=== PATIENT | male | born 1965 | race Caucasian/White ===

== ENCOUNTER 2019-11-01 14:08 | Emergency (ER) | payer SELFPAY ==
--- NOTE | 2019-11-01 14:43 | ED_ITS ---
HPI - General Adult General: Stated complaint: LEFT MIDDLE FINGER Time Seen by Provider: 11/01/19 14:39 History of Present Illness: HPI narrative: Patient with infection in his left middle finger. Has been present for couple days. Patient not for sure how he injured it. Has redness in the finger extending to the dorsal surface of the hand. Patient denies fever chills. Tetanus is up-to-date less than 10 years complaint: Cellulitis Onset (ago): day(s) (2) Location: left and upper extremity Severity: moderate Associated symptoms: Reports no associated symptoms; Deny chest pain, dyspnea, headache(s), nausea, rash or vomiting Review of Systems Const: Denies: fever, chills or body aches Eyes: Denies: change in vision or blurry vision ENMT: Denies: throat pain or nasal congestion Card: Denies: chest pain or shortness of breath on exertion Resp: Denies: shortness of breath, productive cough or non-productive cough GI: Denies: abdominal pain, nausea or vomiting : Denies: difficulty urinating Musc: Reports: extremity pain (Left middle finger with redness and tenderness) and extremity swelling Skin/Breast: Denies: rash Neuro: Denies: headache Psych: Denies: anxiety or depression Jerson/Lymph: Denies: easy bruising Physical Exam Const: COMMON NORMALS: no apparent distress, average body habitus and oriented x3 HENMT: COMMON NORMALS: normocephalic HEAD & SCALP: normal to inspection and normocephalic FACE & SINUS: normal facial exam Eye: COMMON NORMALS: conjunctivae normal GENERAL EYE: normal appearance of both eyes CONJUNCTIVA: Yes conjunctivae normal Neck/C-Spine: COMMON NORMALS: no JVD Chest: COMMONS NORMALS: inspection of chest normal Resp: COMMON NORMALS: normal respiratory effort and clear to auscultation bilaterally AUSCULTATION: clear to auscultation bilaterally Cardio: COMMON NORMALS: no JVD, regular rate and regular rhythm RATE: regular rate RHYTHM: regular rhythm GI: COMMON NORMALS: normal to inspection, nondistended, normoactive bowel sounds Extremity: COMMON NORMALS: normal to inspection and full ROM LEFT UPPER EXTREMITY: Yes hand & digits (Middle finger with erythema yellowish drainage from the proximal aspect with swelling extending to the dorsal surface of the hand) Neuro: COMMON NORMALS: oriented x3 [facility] - General Adult MDM Narrative: Medical decision making narrative: Patient refused IM injection are IV antibiotics. Says he just did not like needles man. Discharge Plan Discharge Patient Disposition: Home, Self-Care Clinical Impression: Cellulitis of finger of left hand Condition: Stable Prescriptions: New Bactrim DS 800-160 mg tablet 1 tab PO BID 10 Days Qty: 20 RF: 0 Discharge Orders: Discharge Order (Routine); Ordered 11/01/19 Ordered By: Kevin Phillips Discharge Diet: Advance as tolerated Discharge Activity: Increase activity as tolerated Patient Instructions: Cellulitis (ED) Activity Restrictions/Additional Instructions: Follow-up with medical provider as directed. Take medications as prescribed. Return to the ER or your medical provider if condition worsens. Please read and understand discharge instructions. If any questions ask please. Please be aware that if worsening symptoms next couple days need to follow-up with the provider that you might need IV or IM antibiotics. Coding Level of Care Code ED Senior Graphic Designer for Nataly Fwd Exam Comprehensive
[2019-11-01 15:06] VITALS: BP 120/70; PULSE 83; RESP 16; TEMP 36.8; O2SAT 95; BMI 23.6
[2019-11-01] MEDS: sulfamethoxazole-trimeth DS 160-800 mg Tablet 1 TAB PO (15:20)
[2019-11-01 15:24] VITALS: BP 120/70; PULSE 85; RESP 16; TEMP 36.8; O2SAT 95
== END 2019-11-01 15:28 | disposition home or self-care (01) ==
PROVIDERS: Emergency Provider Nurse Practitioner Family
DX: L03.012 Cellulitis of left finger (principal)
CPT/HCPCS: 87070; 87077; 87186; 99281; 99283

== ENCOUNTER 2020-02-29 00:33 | Emergency (ER) | payer SELFPAY ==
[2020-02-29 00:49] VITALS: BP 143/78; PULSE 73; RESP 16; TEMP 37.2; O2SAT 96; BMI 23.7
== END 2020-02-29 01:39 | disposition left against medical advice (07) ==
PROVIDERS: Emergency Provider Emergency Medicine
DX: Z53.21 Procedure and treatment not carried out due to patient leaving prior to being seen by health care provider (principal)
CPT/HCPCS: 99281

== ENCOUNTER 2020-04-26 00:05 | Emergency (ER) | payer SELFPAY ==
[2020-04-26 00:09] VITALS: BP 146/81; PULSE 70; RESP 16; TEMP 36.6; O2SAT 96; BMI 25.1
--- NOTE | 2020-04-26 00:23 | ED_ITS ---
HPI - Animal Bite General: Chief Complaint: Animal Bite Stated Complaint: right hand injury Time Seen by Provider: 04/26/20 00:22 History of Present Illness: HPI narrative: Patient is a 54-year-old male who comes to the ED after left hand was scratched by a cat. Injury occurred approximately 2 weeks ago. Patient says the cat is a stray cat that they took and hand and has not had any vaccinations, including rabies. Patient says he is not up-to-date on his tetanus shot. He says that his left hand is sore around the area the cat scratched him. Associated symptoms: Deny chills, fever(s) or headache(s) Review of Systems Const: Denies: fever(s), chills or fatigue Eyes: Denies: change in vision or eye discomfort ENMT: Denies: throat pain, odynophagia, nasal discharge or nasal congestion Card: Denies: chest pain, palpitations, edema, swelling of feet/ankles, dyspnea on exertion or orthopnea Resp: Denies: dyspnea, productive cough or non-productive cough GI: Denies: abdominal pain, nausea, vomiting, diarrhea, constipation or hematochezia : Denies: flank pain, difficulty urinating, dysuria or hematuria Musc: Reports: extremity pain (Left hand pain due to cat scratch.); Denies: neck pain, back pain or extremity swelling Skin/Breast: Reports: new lesions (Abrasion on left hand due to cat scratch.); Denies: rash Neuro: Denies: headache(s), numbness in extremities or weakness in extremities Physical Exam Const: COMMON NORMALS: no acute distress, patient oriented x3 and alert GENERAL APPEARANCE: cooperative HENMT: COMMON NORMALS: normocephalic HEAD & SCALP: normocephalic MOUTH: Normal oral and palatal mucosa present THROAT: posterior oropharynx normal and uvula midline Neck/C-Spine: COMMON NORMALS: supple GENERAL: Yes normal visual inspection Resp: COMMON NORMALS: normal respiratory effort, No retractions, No use of accessory muscles and clear to auscultation bilaterally AUSCULTATION: clear to auscultation bilaterally Cardio: COMMON NORMALS: regular rate, regular rhythm, S1 normal heart sound present, S2 normal heart sound present, No gallops present (Cardio), No clicks present (Cardio), No murmurs present (Cardio) and Peripheral pulses 2+ throughout RATE: regular rate RHYTHM: regular rhythm HEART SOUNDS: S1 normal heart sound present and S2 normal heart sound present PERIPHERAL PULSES: Peripheral pulses 2+ throughout GI: COMMON NORMALS: Normal to inspection, nondistended, normoactive bowel sounds present, Soft to palpation, non-tender and no masses PALPATION: Yes Soft to palpation : COMMON NORMALS: Yes no CVA tenderness BLADDER/KIDNEY EXAM: Yes no CVA tenderness Back/Pelvis: COMMON NORMALS: no CVA tenderness Extremity: LEFT UPPER EXTREMITY: Yes hand & digits Left hand and digits: Yes inspection (Patient has a scratch on dorsal aspect of the left hand at the base of the fourth digit. There is a scab that is formed and there is some surrounding erythema. No visible puslike drainage seen.) Neuro: COMMON NORMALS: patient oriented x3 and moves all extremities SENSORIUM/ORIENTATION: Yes alert Skin: TRAUMA: abrasion (Abrasion on left hand dorsal side at the base of fourth digit. Surrounding erythema and some mild warmth around cat scratch. Likely cellulitis developing.) Course Vital Signs: Vital signs: Vital Signs Temperature 98 F 04/26/20 00:09 Pulse Rate 62 04/26/20 01:29 Respiratory Rate 16 04/26/20 01:29 Blood Pressure 122/74 04/26/20 01:29 Pulse Oximetry 98 04/26/20 01:29 MDM - Animal Bite MDM Narrative: Medical decision making narrative: Patient is a 54-year-old male who comes to the ED with abrasion due to cat scratch on left hand approximately 2 weeks ago. Patient is having increased pain around scratch site. Cat is a stray and vaccination history is unknown. Exam showed some surrounding erythema and warmth around cat scratch. Patient was given an updated tetanus shot. I explained to patient that I highly recommend him to get the rabies vaccination series since history of cat is unknown. I told patient about the risk of not getting rabies vaccinations. Patient decided not to get rabies vaccination and signed AMA form. Patient was diagnosed with cat scratch and cellulitis and given a prescription for azithromycin and doxycycline. Patient told he can return to ED at any time if he decides to get rabies vaccinations. Patient will follow-up with PCP in the next 7 to 10 days for reevaluation. Patient understood and agreed with plan. Discharge Plan Discharge Patient Disposition: Home Clinical Impression: Cat scratch Cellulitis Qualifiers: Site of cellulitis: extremity Site of cellulitis of extremity: upper extremity Laterality: left Qualified Code(s): L03.114 - Cellulitis of left upper limb Condition: Stable Prescriptions: New azithromycin 250 mg tablet 250 mg PO DAILY 4 Days Qty: 4 RF: 0 doxycycline hyclate 100 mg capsule 100 mg PO BID 7 Days Qty: 14 RF: 0 No Action No Known Home Medications RF: 0 Discharge Orders: Discharge Order (Routine); Ordered 04/26/20 Ordered By: Uche Nguyen Discharge Diet: Regular Discharge Activity: Resume usual activity Patient Instructions: Cellulitis (ED), Rabies (ED), Cat Scratch Disease (ED) Activity Restrictions/Additional Instructions: Follow-up with medical provider as directed in the next 7-10 days. Take medications as prescribed. You can return to the ED or urgent care if you decide to get rabies vaccination. Take ibuprofen up to 800 mg dose every 8 hours as needed for pain. Return to the ER or your medical provider if condition worsens. Please read and understand discharge instructions. If any questions, please ask. Discharge Date/Time: 04/26/20 01:34 Coding Level of Care Code ED Brake Repair Mechanic for Nataly Fwd Exam Comprehensive
[2020-04-26 00:28] VITALS: BP 131/70; PULSE 55; RESP 16; O2SAT 96
[2020-04-26] MEDS: tetanus-diphtheria tox (adult) 0.5 mL SDV IM (01:14)
[2020-04-26] MEDS: doxycycline 100 mg Tablet PO (01:16)
[2020-04-26] MEDS: azithromycin 250 mg Tablet 500 MG PO (01:16)
[2020-04-26 01:29] VITALS: BP 122/74; PULSE 62; RESP 16; O2SAT 98
== END 2020-04-26 01:34 | disposition home or self-care (01) ==
PROVIDERS: Emergency Provider Physician Assistant
DX: S60.512A Abrasion of left hand, initial encounter (principal); W55.03XA Scratched by cat, initial encounter; L03.114 Cellulitis of left upper limb; Z23 Encounter for immunization
CPT/HCPCS: 12345; 90471; 90714; 99281; 99283; Q0144

== ENCOUNTER 2020-11-20 00:52 | Emergency (ER) | payer SELFPAY ==
[2020-11-20 01:33] VITALS: BP 156/82; PULSE 88; RESP 18; TEMP 39; O2SAT 96; BMI 23.6
--- NOTE | 2020-11-20 01:38 | W.ED.URI ---
Documented by User: NAZIA Wayne 11/20/20 03:10 HPI - URI/Sore Throat General: Chief Complaint: COVID symptoms Stated Complaint: bronchitis, full body ache Time Seen by Provider: 11/20/20 01:38 Source: patient Mode of arrival: ambulatory Limitations: no limitations History of Present Illness: HPI Narrative: Patient comes in today for complaints of cough, congestion, fever for 5 days. Patient has been taking clindamycin 150 mg twice a day for the last 5 days. Patient comes in tonight for persistent symptoms and without any improvement. Patient appears unwell. Patient denies any routine medications or medical problems. MD elicited complaint: cough Associated symptoms: Reports fever(s) Review of Systems General: Reports: 10 or more systems reviewed and unremarkable except in HPI and below Const: Reports: fever(s) Resp: Reports: non-productive cough Physical Exam Const: COMMON NORMALS: no acute distress and patient oriented x3 GENERAL APPEARANCE: cooperative HENMT: COMMON NORMALS: normocephalic, TM's normal bilaterally and Normal external nose present HEAD & SCALP: normal to inspection and normocephalic NOSE: Normal external nose present TYMPANIC MEMBRANE: TM's normal bilaterally MOUTH: Normal oral and palatal mucosa present THROAT: posterior oropharynx normal Eye: GENERAL EYE: appearance normal, both eyes and all related structures Neck/C-Spine: COMMON NORMALS: full ROM Lymph: LYMPHATIC: no lymphadenopathy noted Chest: COMMONS NORMALS: normal inspection of the chest Resp: COMMON NORMALS: normal respiratory effort EFFORT & INSPECTION: Yes able to speak in complete sentences AUSCULTATION: wheezes Cardio: COMMON NORMALS: regular rate and regular rhythm RATE: regular rate RHYTHM: regular rhythm GI: COMMON NORMALS: non-tender : COMMON NORMALS: Yes no CVA tenderness BLADDER/KIDNEY EXAM: Yes no CVA tenderness Back/Pelvis: COMMON NORMALS: no CVA tenderness and thoracic and lumbar spine normal to inspection Extremity: COMMON NORMALS: normal to inspection Neuro: COMMON NORMALS: patient oriented x3 and moves all extremities Psych: COMMON NORMALS: mental status grossly normal and cooperative Skin: COMMON NORMALS: no rashes or lesions noted GENERAL SKIN EXAM: no rashes or lesions noted Course ED course: 3:08 AM, reviewed patient with Dr. Tracey who will assume care of patient on my end of shift. We are awaiting labs, x-ray, and evaluation for sepsis. [facility] Vital Signs: Vital signs: Vital Signs Temperature 102.2 F H 11/20/20 01:33 Pulse Rate 62 11/20/20 07:24 Respiratory Rate 18 11/20/20 07:24 Blood Pressure 90/50 11/20/20 07:24 Pulse Oximetry 96 11/20/20 07:24 MDM - URI/Sore Throat Lab Data: Labs: Lab Results 11/20/20 11/20/20 11/20/20 Range/Units 04:00 04:01 04:01 WBC 5.4 (4.0-10.0) 10^3/ uL RBC 4.12 (4.1-5.3) 10^6/u L Hgb 11.8 (11.7-16.6) g/dL Hct 33.9 L (42.0-52.0) % MCV 82.3 (80-94) fL MCH 28.6 (28.0-34.0) pg MCHC 34.8 (30.0-36.0) g/dL RDW 12.0 L (12.1-15.1) % Plt Count 201 (130-400) 10^3/c mm MPV 10.1 (7.4-10.4) fL Neut % (Auto) 74.8 % Lymph % (Auto) 15.2 % Crenshaw % (Auto) 8.5 % Eos % (Auto) 0.2 % Baso % (Auto) 0.7 % Neut # (Auto) 4.04 (1.8-7.7) 10^3/u L Lymph # (Auto) 0.8 (0.8-4.8) 10^3/u L Crenshaw # (Auto) 0.5 (0.2-0.9) 10^3/u L Eos # (Auto) 0.0 (0.0-0.8) 10^3/u L Baso # (Auto) 0.0 (0.0-0.1) 10^3/u L Nucleated RBC % (a uto) 0 % Nucleated RBCs # 0.0 /100WBC Sodium 129 L (136-145) mmol/L Potassium 3.2 L (3.5-5.1) mmol/L Chloride 93 L (98-107) mmol/L Carbon Dioxide 25 (22-29) mmol/L Anion Gap 14.2 (5-19) BUN 13 (6-20) mg/dL Creatinine 0.9 (0.7-1.2) mg/dL GFR Calculation 87.3 L (90-130) mL/min Glucose 99 (65-115) mg/dL Calculated Osmolal ity 268 L (285-295) mOsm/k g Lactic Acid (0.5-2.2) mmol/L Calcium 8.4 L (8.5-10.5) mg/dL Total Bilirubin 0.9 (0.15-1.2) mg/dL AST 19 (0-40) U/L ALT 12 (0-41) U/L Alkaline Phosphata se 86 (40-130) IU/L Total Protein 7.5 (6.6-8.7) g/dL Albumin 4.0 (3.5-5.2) g/dL Globulin 3.5 (1.3-4.6) g/dL Urine Color (Yellow) Urine Appearance (CLEAR) Urine pH (5-7) Ur Specific Gravit y (1.005-1.030) Urine Protein (Negative) Urine Glucose (UA) (Normal) Urine Ketones (Negative) Urine Blood (Negative) Urine Nitrate (Negative) Urine Bilirubin (Negative) Urine Urobilinogen (Negative) mg/dL Ur Leukocyte Marga ase (Negative) Influenza Type A A g Negative (Negative) Influenza Type B A g Negative (Negative) SARS-CoV-2 Ag (Rap id) (Negative) 11/20/20 11/20/20 11/20/20 Range/Units 04:01 04:05 05:00 WBC (4.0-10.0) 10^3/ uL RBC (4.1-5.3) 10^6/u L Hgb (11.7-16.6) g/dL Hct (42.0-52.0) % MCV (80-94) fL MCH (28.0-34.0) pg MCHC (30.0-36.0) g/dL RDW (12.1-15.1) % Plt Count (130-400) 10^3/c mm MPV (7.4-10.4) fL Neut % (Auto) % Lymph % (Auto) % Crenshaw % (Auto) % Eos % (Auto) % Baso % (Auto) % Neut # (Auto) (1.8-7.7) 10^3/u L Lymph # (Auto) (0.8-4.8) 10^3/u L Crenshaw # (Auto) (0.2-0.9) 10^3/u L Eos # (Auto) (0.0-0.8) 10^3/u L Baso # (Auto) (0.0-0.1) 10^3/u L Nucleated RBC % (a uto) % Nucleated RBCs # /100WBC Sodium (136-145) mmol/L Potassium (3.5-5.1) mmol/L Chloride (98-107) mmol/L Carbon Dioxide (22-29) mmol/L Anion Gap (5-19) BUN (6-20) mg/dL Creatinine (0.7-1.2) mg/dL GFR Calculation (90-130) mL/min Glucose (65-115) mg/dL Calculated Osmolal ity (285-295) mOsm/k g Lactic Acid 0.7 (0.5-2.2) mmol/L Calcium (8.5-10.5) mg/dL Total Bilirubin (0.15-1.2) mg/dL AST (0-40) U/L ALT (0-41) U/L Alkaline Phosphata se (40-130) IU/L Total Protein (6.6-8.7) g/dL Albumin (3.5-5.2) g/dL Globulin (1.3-4.6) g/dL Urine Color Yellow (Yellow) Urine Appearance Clear (CLEAR) Urine pH 5 (5-7) Ur Specific Gravit y 1.005 (1.005-1.030) Urine Protein Neg (Negative) Urine Glucose (UA) Norm (Normal) Urine Ketones Negative (Negative) Urine Blood Neg (Negative) Urine Nitrate Negative (Negative) Urine Bilirubin Neg (Negative) Urine Urobilinogen Norm (Negative) mg/dL Ur Leukocyte Marga ase Negative (Negative) Influenza Type A A g (Negative) Influenza Type B A g (Negative) SARS-CoV-2 Ag (Rap id) Negative (Negative) Discharge Plan Discharge Patient Disposition: Home Clinical Impression: Bronchitis Condition: Stable Prescriptions: New dexamethasone 6 mg tablet 6 mg PO DAILY Qty: 5 RF: 0 doxycycline hyclate 100 mg capsule 100 mg PO BID 7 Days Qty: 14 RF: 0 albuterol sulfate 90 mcg/actuation HFA aerosol inhaler 2 inh inhalation Q4H PRN (Reason: shortness of breath or wheezing) Qty: 6.7 RF: 1 Discharge Orders: Discharge ED (Routine); Ordered 11/20/20 Ordered By: Arie Tracey Patient Instructions: Acute Bronchitis (ED) Activity Restrictions/Additional Instructions: Return for continued fever despite 2-3 doses of antibiotics, worsening shortness of breath despite treatment, chest discomfort despite treatment, other concerning symptoms. Until your PCR test comes back negative for COVID-19, you should quarantine at home. If it is positive, you should quarantine at home for at least 10 days. Coding Level of Care Code ED District Scout Executive for Chg Fwd Exam Comprehensive Documented by User: Arie Tracey, 11/20/20 08:37 HPI - URI/Sore Throat General: Chief Complaint: COVID symptoms Stated Complaint: bronchitis, full body ache Time Seen by Provider: 11/20/20 01:38 Course Vital Signs: Vital signs: Vital Signs Temperature 102.2 F H 11/20/20 01:33 Pulse Rate 62 11/20/20 07:24 Respiratory Rate 18 11/20/20 07:24 Blood Pressure 90/50 11/20/20 07:24 Pulse Oximetry 96 11/20/20 07:24 MDM - URI/Sore Throat MDM Narrative: Medical decision making narrative: 55-year-old male checked out to me by NAZIA Fuller. I agree with his history, evaluation, and treatment. This patient has a negative chest x-ray. His sodium is 129, potassium is 3.2. This is repleted. His white blood cell count is 5.4. His rapid Covid is negative. His influenza swab was negative. He will be treated with doxycycline. PCR COVID-19 study will be done on him. Lab Data: Labs: Lab Results 11/20/20 11/20/20 11/20/20 Range/Units 04:00 04:01 04:01 WBC 5.4 (4.0-10.0) 10^3/ uL RBC 4.12 (4.1-5.3) 10^6/u L Hgb 11.8 (11.7-16.6) g/dL Hct 33.9 L (42.0-52.0) % MCV 82.3 (80-94) fL MCH 28.6 (28.0-34.0) pg MCHC 34.8 (30.0-36.0) g/dL RDW 12.0 L (12.1-15.1) % Plt Count 201 (130-400) 10^3/c mm MPV 10.1 (7.4-10.4) fL Neut % (Auto) 74.8 % Lymph % (Auto) 15.2 % Crenshaw % (Auto) 8.5 % Eos % (Auto) 0.2 % Baso % (Auto) 0.7 % Neut # (Auto) 4.04 (1.8-7.7) 10^3/u L Lymph # (Auto) 0.8 (0.8-4.8) 10^3/u L Crenshaw # (Auto) 0.5 (0.2-0.9) 10^3/u L Eos # (Auto) 0.0 (0.0-0.8) 10^3/u L Baso # (Auto) 0.0 (0.0-0.1) 10^3/u L Nucleated RBC % (a uto) 0 % Nucleated RBCs # 0.0 /100WBC Sodium 129 L (136-145) mmol/L Potassium 3.2 L (3.5-5.1) mmol/L Chloride 93 L (98-107) mmol/L Carbon Dioxide 25 (22-29) mmol/L Anion Gap 14.2 (5-19) BUN 13 (6-20) mg/dL Creatinine 0.9 (0.7-1.2) mg/dL GFR Calculation 87.3 L (90-130) mL/min Glucose 99 (65-115) mg/dL Calculated Osmolal ity 268 L (285-295) mOsm/k g Lactic Acid (0.5-2.2) mmol/L Calcium 8.4 L (8.5-10.5) mg/dL Total Bilirubin 0.9 (0.15-1.2) mg/dL AST 19 (0-40) U/L ALT 12 (0-41) U/L Alkaline Phosphata se 86 (40-130) IU/L Total Protein 7.5 (6.6-8.7) g/dL Albumin 4.0 (3.5-5.2) g/dL Globulin 3.5 (1.3-4.6) g/dL Urine Color (Yellow) Urine Appearance (CLEAR) Urine pH (5-7) Ur Specific Gravit y (1.005-1.030) Urine Protein (Negative) Urine Glucose (UA) (Normal) Urine Ketones (Negative) Urine Blood (Negative) Urine Nitrate (Negative) Urine Bilirubin (Negative) Urine Urobilinogen (Negative) mg/dL Ur Leukocyte Marga ase (Negative) Influenza Type A A g Negative (Negative) Influenza Type B A g Negative (Negative) SARS-CoV-2 Ag (Rap id) (Negative) 11/20/20 11/20/20 11/20/20 Range/Units 04:01 04:05 05:00 WBC (4.0-10.0) 10^3/ uL RBC (4.1-5.3) 10^6/u L Hgb (11.7-16.6) g/dL Hct (42.0-52.0) % MCV (80-94) fL MCH (28.0-34.0) pg MCHC (30.0-36.0) g/dL RDW (12.1-15.1) % Plt Count (130-400) 10^3/c mm MPV (7.4-10.4) fL Neut % (Auto) % Lymph % (Auto) % Crenshaw % (Auto) % Eos % (Auto) % Baso % (Auto) % Neut # (Auto) (1.8-7.7) 10^3/u L Lymph # (Auto) (0.8-4.8) 10^3/u L Crenshaw # (Auto) (0.2-0.9) 10^3/u L Eos # (Auto) (0.0-0.8) 10^3/u L Baso # (Auto) (0.0-0.1) 10^3/u L Nucleated RBC % (a uto) % Nucleated RBCs # /100WBC Sodium (136-145) mmol/L Potassium (3.5-5.1) mmol/L Chloride (98-107) mmol/L Carbon Dioxide (22-29) mmol/L Anion Gap (5-19) BUN (6-20) mg/dL Creatinine (0.7-1.2) mg/dL GFR Calculation (90-130) mL/min Glucose (65-115) mg/dL Calculated Osmolal ity (285-295) mOsm/k g Lactic Acid 0.7 (0.5-2.2) mmol/L Calcium (8.5-10.5) mg/dL Total Bilirubin (0.15-1.2) mg/dL AST (0-40) U/L ALT (0-41) U/L Alkaline Phosphata se (40-130) IU/L Total Protein (6.6-8.7) g/dL Albumin (3.5-5.2) g/dL Globulin (1.3-4.6) g/dL Urine Color Yellow (Yellow) Urine Appearance Clear (CLEAR) Urine pH 5 (5-7) Ur Specific Gravit y 1.005 (1.005-1.030) Urine Protein Neg (Negative) Urine Glucose (UA) Norm (Normal) Urine Ketones Negative (Negative) Urine Blood Neg (Negative) Urine Nitrate Negative (Negative) Urine Bilirubin Neg (Negative) Urine Urobilinogen Norm (Negative) mg/dL Ur Leukocyte Marga ase Negative (Negative) Influenza Type A A g (Negative) Influenza Type B A g (Negative) SARS-CoV-2 Ag (Rap id) Negative (Negative) Discharge Plan Discharge Patient Disposition: Home Clinical Impression: Bronchitis Condition: Stable Prescriptions: New dexamethasone 6 mg tablet 6 mg PO DAILY Qty: 5 RF: 0 doxycycline hyclate 100 mg capsule 100 mg PO BID 7 Days Qty: 14 RF: 0 albuterol sulfate 90 mcg/actuation HFA aerosol inhaler 2 inh inhalation Q4H PRN (Reason: shortness of breath or wheezing) Qty: 6.7 RF: 1 Discharge Orders: Discharge ED (Routine); Ordered 11/20/20 Ordered By: Arie Tracey Patient Instructions: Acute Bronchitis (ED) Activity Restrictions/Additional Instructions: Return for continued fever despite 2-3 doses of antibiotics, worsening shortness of breath despite treatment, chest discomfort despite treatment, other concerning symptoms. Until your PCR test comes back negative for COVID-19, you should quarantine at home. If it is positive, you should quarantine at home for at least 10 days. Coding Level of Care Code ED District Scout Executive for Nataly Fwd Exam Comprehensive
--- NOTE | 2020-11-20 01:44 | XRR_ITS ---
PROCEDURE INFORMATION: Exam: XR Chest Exam date and time: 11/20/2020 1:55 AM Age: 55 years old Clinical indication: Dyspnea; Additional info: Dyspnea, fever TECHNIQUE: Imaging protocol: XR of the chest Views: 1 view. COMPARISON: CR Chest 1 [place] [id number] 08/10/2019 6:18 PM FINDINGS: Lungs: Unremarkable. No consolidation. Pleural spaces: Unremarkable. No pleural effusion. No pneumothorax. Heart/Mediastinum: Unremarkable. No cardiomegaly. Bones/joints: Unremarkable. XR/XR chest 1V portable [id number] IMPRESSION: No acute findings.
[2020-11-20] MEDS: acetaminophen 500 mg Tablet 1000 MG PO (03:55)
[2020-11-20] MEDS: sodium chloride 0.9% 1,000 ML 999 ML IV (04:01)
[2020-11-20 04:33] LABS: Basophils % 0.7 %; Eosinophils % 0.2 %; Hematocrit 33.9 % (42.0-52.0); Hemoglobin 11.8 g/dL (11.7-16.6); Lymphocytes # 0.8 10^3/uL (0.8-4.8); Lymphocytes % 15.2 %; Mean Corpuscular HGB Conc 34.8 g/dL (30.0-36.0); Mean Corpuscular Hemoglobin 28.6 pg (28.0-34.0); Mean Corpuscular Volume 82.3 fL (80-94); Mean Platelet Volume 10.1 fL (7.4-10.4); Monocytes # 0.5 10^3/uL (0.2-0.9); Monocytes % 8.5 %; Neutrophils # 4.04 10^3/uL (1.8-7.7); Neutrophils % 74.8 %; Nucleated Red Blood Cells % 0 %; Platelet Count 201 10^3/cmm (130-400); Red Blood Count 4.12 10^6/uL (4.1-5.3); White Blood Count 5.4 10^3/uL (4.0-10.0)
[2020-11-20 04:52] LABS: Lactic Sepsis W/Reflex 0.7 mmol/L (0.5-2.2)
[2020-11-20 04:53] LABS: Alanine Aminotransferase 12 U/L (0-41); Alkaline Phosphatase 86 IU/L (40-130); Anion Gap 14.2 (5-19); Aspartate Amino Transferase 19 U/L (0-40); Blood Urea Nitrogen 13 mg/dL (6-20); Calcium 8.4 mg/dL (8.5-10.5); Carbon Dioxide 25 mmol/L (22-29); Chloride 93 mmol/L (98-107); Globulin 3.5 g/dL (1.3-4.6); Glomerular Filtration Rate 87.3 mL/min (90-130); Glucose 99 mg/dL (65-115); Osmolality Calculated 268 mOsm/kg (285-295); Potassium 3.2 mmol/L (3.5-5.1); Sodium 129 mmol/L (136-145); Total Bilirubin 0.9 mg/dL (0.15-1.2); Total Protein 7.5 g/dL (6.6-8.7)
[2020-11-20 05:28] VITALS: BP 155/60; PULSE 89; RESP 12; O2SAT 94; O2SAT 95
[2020-11-20 05:32] LABS: Add Urine Microscopic? NO
[2020-11-20 05:41] LABS: Bilirubin Urine Neg (Negative); Blood Urine Neg (Negative); Glucose Urine UA Norm (Normal); Ketones Urine Negative (Negative); Leukocyte Esterase Urine Negative (Negative); Nitrate Urine Negative (Negative); Protein Urine Neg (Negative); Specific Gravity, Urine 1.005 (1.005-1.030); Urine Appearance Clear (CLEAR); Urine Color Yellow (Yellow); Urobilinogen Urine Norm (Negative); pH Urine 5 (5-7)
[2020-11-20] MEDS: potassium chloride ER 20 mEq Tablet 40 MEQ PO (05:55)
[2020-11-20 06:43] LABS: SARS Covid-2 Antigen Negative (Negative)
[2020-11-20 06:43] LABS: Influenza A by IFA Negative (Negative); Influenza B by IFA Negative (Negative)
[2020-11-20] MEDS: doxycycline 100 mg Tablet PO (07:15)
[2020-11-20] MEDS: dexamethasone 4 mg Tablet 10 MG PO (07:15)
[2020-11-20 07:24] VITALS: BP 90/50; PULSE 62; RESP 18; O2SAT 96
[2020-11-21 14:30] LABS: Coronavirus Test Green County Not Detected
== END 2020-11-20 07:24 | disposition home or self-care (01) ==
PROVIDERS: Nurse Practitioner Family; Emergency Provider Emergency Medicine
DX: J40 Bronchitis, not specified as acute or chronic (principal)
CPT/HCPCS: 71045; 80053; 81003; 83605; 85025; 87040; 87426; 87635; 87804; J7030; J8540

== ENCOUNTER 2021-12-23 16:05 | Emergency (ER) | payer BC, SELFPAY ==
[2021-12-23 16:33] VITALS: BP 104/68; PULSE 81; RESP 18; TEMP 36.7; O2SAT 99; BMI 22.6
--- NOTE | 2021-12-23 17:45 | USR_ITS ---
PROCEDURE INFORMATION: Exam: US Duplex Left Lower Extremity Veins, Limited Exam date and time: 12/23/2021 6:21 PM Age: 56 years old Clinical indication: Pain; Leg, upper and leg, lower; Left TECHNIQUE: Imaging protocol: Real-time Duplex ultrasound of the Left Lower Extremity with 2-D ellsworth scale, color Doppler flow and spectral waveform analysis with image documentation. Limited exam focused on the left lower extremity veins. COMPARISON: No relevant prior studies available. FINDINGS: Left deep veins: Unremarkable. The common femoral, femoral, proximal profunda femoral and popliteal veins are patent without thrombus. Normal Doppler waveforms. Normal compressibility and/or augmentation response. Left superficial veins: Unremarkable. Saphenofemoral junction is patent without thrombus. Soft tissues: Unremarkable. US/CV venous duplex [facility] [id number] IMPRESSION: No evidence of deep vein thrombosis.
[2021-12-23 18:09] VITALS: BP 117/65; PULSE 60; RESP 16; O2SAT 99
--- NOTE | 2021-12-23 18:43 | USR_ITS ---
PROCEDURE INFORMATION: Exam: US Scrotum Exam date and time: 12/23/2021 6:54 PM Age: 56 years old Clinical indication: Groin pain; Additional info: Left testicular pain TECHNIQUE: Imaging protocol: Real-time ultrasound of the scrotum and contents with color Doppler and image documentation. COMPARISON: [place] [id number] 12/23/2021 6:21 PM FINDINGS: Right testicle: Normal. No mass. No torsion. Normal vascular flow. Left testicle: Normal. No mass. No torsion. Normal vascular flow. Epididymides: Normal. Scrotum: Normal. US/US scrotum [id number] IMPRESSION: Normal scrotal ultrasound.
--- NOTE | 2021-12-23 18:43 | ED_ITS ---
HPI - Extremity Problem General: Chief complaint: Extremity Problem,Nontraumatic Stated complaint: pain in R leg and groin Time Seen by Provider: 12/23/21 18:15 History of Present Illness: Patient is a 56-year-old male comes to the ED with left groin pain. Its been going on for the past month. Denies any injury or trauma to cause pain he says the pain is in his left groin and it radiates down into his mid thigh and posterior upper thigh/buttock region down to his left knee. He describes the pain in his groin and thigh as a cramping muscle pain. He rates the pain currently 3 out of 10. Pain worsens with movement of left leg. He also reports having some left testicular pain yesterday that lasted for approximately 20 minutes. He has not had any reoccurring testicular pain today. Denies any scrotal swelling, scrotal tenderness, dysuria, hematuria, penile discharge or any penile lesions. Associated symptoms: Deny chest pain, fever(s) or rash Review of Systems Const: Denies: fever(s), chills or fatigue Eyes: Denies: change in vision or eye discomfort ENMT: Denies: throat pain, odynophagia, nasal discharge or nasal congestion Card: Denies: chest pain, palpitations, edema, swelling of feet/ankles, dyspnea on exertion or orthopnea Resp: Denies: dyspnea, productive cough or non-productive cough GI: Denies: abdominal pain, nausea, vomiting, diarrhea, constipation or hematochezia : Reports: testicular pain (left testicle yesterday resolved today.); Denies: flank pain, difficulty urinating, dysuria, hematuria, testicular mass or scrotal swelling Musc: Reports: extremity pain (Left groin and thigh pain.); Denies: neck pain, back pain or extremity swelling Skin/Breast: Denies: rash or new lesions Neuro: Denies: headache(s), numbness in extremities or weakness in extremities [facility]LY [facility] ED PFSH: Medical History No pertinent family history Surgical History No pertinent past surgical history Physical Exam Const: COMMON NORMALS: no acute distress, patient oriented x3 and alert HENMT: COMMON NORMALS: normocephalic HEAD & SCALP: normocephalic MOUTH: Normal oral and palatal mucosa present THROAT: posterior oropharynx normal and uvula midline Neck/C-Spine: COMMON NORMALS: supple GENERAL: Yes normal visual inspection Resp: COMMON NORMALS: normal respiratory effort, No retractions, No use of accessory muscles and clear to auscultation bilaterally AUSCULTATION: clear to auscultation bilaterally Cardio: COMMON NORMALS: regular rate, regular rhythm, S1 normal heart sound present, S2 normal heart sound present, No gallops present (Cardio), No clicks present (Cardio), No murmurs present (Cardio) and Peripheral pulses 2+ throughout RATE: regular rate RHYTHM: regular rhythm HEART SOUNDS: S1 normal heart sound present and S2 normal heart sound present PERIPHERAL PULSES: Peripheral pulses 2+ throughout GI: COMMON NORMALS: Normal to inspection, nondistended, normoactive bowel sounds present, Soft to palpation, non-tender and no masses PALPATION: Yes Soft to palpation : COMMON NORMALS: Yes no CVA tenderness BLADDER/KIDNEY EXAM: Yes no CVA tenderness PENIS: normal penis and circumcised MEATUS: meatus normal SCROTUM: Yes testes descended bilaterally, No Scrotal tenderness present, No erythematous and No scrotal swelling Back/Pelvis: COMMON NORMALS: no CVA tenderness Extremity: COMMON NORMALS: normal to inspection, full ROM and no pedal edema Neuro: COMMON NORMALS: patient oriented x3 and moves all extremities SENSORIUM/ORIENTATION: Yes alert Skin: GENERAL SKIN EXAM: dry skin Course Vital Signs: Vital signs: Vital Signs Temperature 98.1 F 12/23/21 16:33 Pulse Rate 55 L 12/23/21 19:18 Respiratory Rate 15 12/23/21 19:18 Blood Pressure 111/67 12/23/21 19:18 Pulse Oximetry 97 12/23/21 19:18 MDM - Extremity (Nontraumatic) Medical Decision Making Patient is a 56-year-old male comes to the ED with left groin pain radiates into his thigh. Symptoms of been going on now for over a month. Describes this pain as a muscle cramping in the thigh and groin. Worsens with movement of left leg. He said yesterday he had an episode of left testicle pain that resolved after 20 minutes he does not have any current testicular pain. Denies any dysuria, hematuria, penile discharge, scrotal swelling, scrotal tenderness or any lesions on his genitalia. Vitals stable. Exam was benign. Ultrasound venous duplex of left lower extremity showed no DVTs. Ultrasound of scrotum showed no acute findings. Patient's symptoms are likely a muscle strain.. Patient was diagnosed with musculoskeletal pain of left lower extremity was discharged home with a muscle relaxer and some Celebrex. Return ED precautions given. Patient is done agree with plan. Lab Data Radiology Impressions Venous Duplex 12/23/21 17:45 IMPRESSION: No evidence of deep vein thrombosis. Scrotum Ultrasound 12/23/21 18:43 IMPRESSION: Normal scrotal ultrasound. Discharge Plan Discharge Patient Disposition: Home Clinical Impression: Musculoskeletal pain of left lower extremity Condition: Stable Prescriptions: New Celebrex 100 mg capsule 100 mg PO BID PRN (Reason: pain) Qty: 20 0RF methocarbamol 750 mg tablet 750 mg PO TID PRN (Reason: Muscle spasms and Pain) Qty: 20 0RF No Action dexamethasone 6 mg tablet 6 mg PO DAILY Qty: 5 0RF albuterol sulfate 90 mcg/actuation HFA aerosol inhaler 2 inh inhalation Q4H PRN (Reason: shortness of breath or wheezing) Qty: 6.7 1RF Discharge Orders: Discharge ED (Routine); Ordered 12/23/21 Ordered By: Uche Nguyen Discharge Diet: Regular Discharge Activity: Increase activity as tolerated Patient Instructions: Musculoskeletal Pain (ED) Activity Restrictions/Additional Instructions: Follow-up with medical provider as directed in the next 7 to 10 days reevaluation. Apply cold pack on sore area left leg to help with symptoms. Take medications as prescribed. Methocarbamol is a muscle relaxer and can cause some drowsiness so take at night before going to bed. Return to the ER or your medical provider if condition worsens. Please read and understand discharge instructions. Thank you for choosing [facility] for your healthcare needs today. Please realize this is an emergency room and that we are providing you with a medical screening exam and this may not be complete and all inclusive of all the testing and or work up that you may need to determine your ailment or severity of your illness. It is very important that you follow up as instructed or that you return to the Emergency Department should you have concerns or if your condition changes or worsens in any way. Coding Level of Care Code ED Quality Officer for Nataly Craig Exam Comprehensive
[2021-12-23 19:18] VITALS: BP 111/67; PULSE 55; RESP 15; O2SAT 97
== END 2021-12-23 20:01 | disposition home or self-care (01) ==
PROVIDERS: Emergency Provider Physician Assistant
DX: M79.605 Pain in left leg (principal); M79.652 Pain in left thigh; N50.812 Left testicular pain
CPT/HCPCS: 76870; 93971; 99283

== ENCOUNTER 2022-08-12 17:06 | Emergency (ER) | payer BC, SELFPAY ==
[2022-08-12 17:31] VITALS: BP 127/70; PULSE 80; RESP 16; TEMP 37.5; O2SAT 98
--- NOTE | 2022-08-12 19:54 | XRR_ITS ---
PROCEDURE INFORMATION: Exam: XR Chest Exam date and time: 08/12/2022 8:01 PM Age: 56 years old Clinical indication: Cough and shortness of breath; Additional info: Cough SOB TECHNIQUE: Imaging protocol: Radiologic exam of the chest. Views: 2 views. COMPARISON: CR XR chest 1V portable [id number] 11/20/2020 3:19 AM FINDINGS: Lungs: Mildly hyperaerated lungs consistent with deep inspiratory effort vs reactive airway disease vs mild COPD . Pleural spaces: Unremarkable. No pleural effusion. No pneumothorax. Heart/Mediastinum: Unremarkable. No cardiomegaly. Bones/joints: Unremarkable. XR/XR chest 2V* [id number] IMPRESSION: Mildly hyperaerated lungs consistent with deep inspiratory effort vs reactive airway disease vs mild COPD .
--- NOTE | 2022-08-12 20:32 | W.ED.SOB ---
HPI - SOB/Dyspnea General: Chief Complaint: Fever Stated Complaint: COUGH Time Seen by Provider: 08/12/22 19:36 Source: patient History of Present Illness: HPI Narrative: 56-year-old male who states that he gets bronchitis 3-4 times a year. He presents with body aches, cough, congestion, some mild sputum production. Some congestion. He says he has had these symptoms for couple of days he does not know how high his fever has been. MD elicited complaint: shortness of breath and cough Onset (ago): day(s) Timing: constant and progressively worsening Severity: moderate Exacerbating factors: lying flat and exertion Relieving factors: nothing Associated symptoms: Reports chest congestion, cough and fever(s); Deny abdominal pain, chest pain, diaphoresis, nausea or vomiting Treatment prior to arrival: none Review of Systems Const: Reports: fever(s); Denies: diaphoresis Eyes: Denies: change in vision ENMT: Reports: throat pain Card: Denies: chest pain Resp: Reports: dyspnea, productive cough and chest congestion GI: Denies: abdominal pain, nausea or vomiting [facility] ED PFSH: Medical History No pertinent family history Surgical History No pertinent past surgical history Physical Exam Const: COMMON NORMALS: no acute distress GENERAL APPEARANCE: cooperative; not ill appearing and not frail appearing HENMT: COMMON NORMALS: normocephalic, atraumatic and Normal external nose present HEAD & SCALP: normocephalic and atraumatic FACE & SINUS: normal facial exam and face symmetric NOSE: Normal external nose present Eye: COMMON NORMALS: Equal, round and reactive pupils present and EOMs intact bilaterally PUPIL: Yes Equal, round and reactive pupils present Neck/C-Spine: GENERAL: Yes trachea midline Chest: CHEST: Yes Symmetrical chest wall rise Resp: COMMON NORMALS: normal respiratory effort, No retractions, No use of accessory muscles and clear to auscultation bilaterally AUSCULTATION: clear to auscultation bilaterally Cardio: COMMON NORMALS: regular rate and regular rhythm RATE: regular rate RHYTHM: regular rhythm GI: COMMON NORMALS: Normal to inspection, nondistended, normoactive bowel sounds present Extremity: COMMON NORMALS: no pedal edema Neuro: THERESE COMA SCALE: document GCS findings [place] coma scale eye opening: Spontaneous [place] coma scale verbal response: Orientated [place] coma scale motor response: Obey commands [place] coma scale total score: 15 SENSORY EXAM: Yes extremities (intact) Psych: COMMON NORMALS: speech normal SPEECH: Yes normal speech Skin: COMMON NORMALS: no rashes or lesions noted GENERAL SKIN EXAM: no rashes or lesions noted Course Vital Signs: Vital signs: Vital Signs Temperature 100.2 F H 08/12/22 20:46 Pulse Rate 79 08/12/22 20:46 Respiratory Rate 16 08/12/22 21:18 Blood Pressure 130/71 08/12/22 20:46 Pulse Oximetry 96 08/12/22 21:18 Oxygen Delivery Me thod Nasal Cannula 08/12/22 20:46 MDM - SOB/Dyspnea Medical Decision Making Chest x-ray is negative for infiltrate. Swabs are pending Swabs are negative. Vitals are stable. To be treated for acute bronchitis to return if worsening. Lab Data Labs/Radiology: Radiology Impressions Chest X-Ray 08/12/22 19:54 IMPRESSION: Mildly hyperaerated lungs consistent with deep inspiratory effort vs reactive airway disease vs mild COPD . Laboratory Results Influenza Type A Ag negative (Negative) 08/12/22 20:52 Influenza Type B Ag negative (Negative) 08/12/22 20:52 SARS-CoV-2 Ag (Rapid) negative (Negative) 08/12/22 20:52 Discharge Plan Discharge Patient Disposition: Home Clinical Impression: Acute bronchitis Condition: Stable Prescriptions: New doxycycline hyclate 100 mg capsule 100 mg PO BID 7 Days Qty: 14 0RF Continued dexamethasone 6 mg tablet 6 mg PO DAILY Qty: 5 0RF albuterol sulfate 90 mcg/actuation HFA aerosol inhaler 2 inh inhalation Q4H PRN (Reason: shortness of breath or wheezing) Qty: 6.7 1RF No Action Celebrex 100 mg capsule 100 mg PO BID PRN (Reason: pain) Qty: 20 0RF methocarbamol 750 mg tablet 750 mg PO TID PRN (Reason: Muscle spasms and Pain) Qty: 20 0RF Discharge Orders: Discharge ED (Routine); Ordered 08/12/22 Ordered By: Arie Tracey Discharge Diet: Advance as tolerated Discharge Activity: Increase activity as tolerated Patient Instructions: Acute Bronchitis (ED) Activity Restrictions/Additional Instructions: Use the inhaler prescribed every 4 hours while awake for the next 48 hours scheduled, then as needed. Other medications as directed. Return for worsening shortness of breath despite treatment. Worsening chest discomfort, any other concerns. Check your temperature at least 3 times a day and treat accordingly with Tylenol or ibuprofen. Stay hydrated. Coding Level of Care Code ED Bevel Gear Generator Operator for Nataly Fwsemaj Exam Comprehensive
[2022-08-12 20:46] VITALS: BP 130/71; PULSE 79; RESP 15; TEMP 37.9; O2SAT 96
[2022-08-12 21:18] VITALS: RESP 16; O2SAT 96
[2022-08-12] MEDS: dexamethasone 4 mg Tablet 10 MG PO (21:18)
[2022-08-12] MEDS: doxycycline 100 mg Tablet PO (21:18)
[2022-08-12] MEDS: oxyCODONE-APAP 5-325 mg Tablet 2 TAB PO (21:18)
[2022-08-12 21:21] LABS: Influenza A by IFA negative (Negative); Influenza B by IFA negative (Negative)
[2022-08-12 21:22] LABS: SARS Covid-2 Antigen negative (Negative)
[2022-08-12 21:46] VITALS: BP 141/84; PULSE 89; RESP 20; O2SAT 96
== END 2022-08-12 21:48 | disposition home or self-care (01) ==
PROVIDERS: Nurse Practitioner Family; Emergency Provider Emergency Medicine
DX: J20.9 Acute bronchitis, unspecified (principal); Z20.822 Contact with and (suspected) exposure to COVID-19
CPT/HCPCS: 71046; 87426; 87804; 99284; J8540

== ENCOUNTER 2022-10-01 11:10 | Emergency (ER) | payer BC, SELFPAY ==
[2022-10-01 11:15] VITALS: BP 118/73; PULSE 60; RESP 15; TEMP 36.7; O2SAT 95
--- NOTE | 2022-10-01 11:32 | W.ED.CHESTPA ---
HPI - Chest Pain General: Chief Complaint: Chest Pain Stated Complaint: CHEST PAIN Time Seen by Provider: 10/01/22 11:28 Source: patient Mode of arrival: EMS History of Present Illness: This 52-year-old male was brought in by EMS for evaluation of chest pain that started somewhere around 9:45 AM. Patient notes that he was at work when pain started. Pain is mainly in the right anterior chest. It is sharp in nature and was 10 out of 10 at onset. After receiving aspirin and nitroglycerin from EMS, pain improved. Currently, patient's pain is 1 out of 10. On further questioning, patient noted that he has been having intermittent right-sided chest pain since 1984. He has been worked up but no obvious cause of the pain has been found. He denies nausea or vomiting associated with the pain. Currently he appears clinically stable. Review of Systems Const: Denies: chills, body aches or change in appetite Eyes: Denies: change in vision or eye discharge ENMT: Denies: throat pain, dental pain or nasal discharge Card: Reports: chest pain; Denies: lightheadedness : Denies: dysuria Musc: Denies: neck pain or back pain Neuro: Denies: headache(s) or weakness in extremities Psych: Denies: depression [place]/Lymph: Denies: easy bruising All/Imm: Denies: urticaria, tongue swelling or facial swelling PFSH ED PFSH: Medical History No pertinent family history Surgical History No pertinent past surgical history Physical Exam Const: COMMON NORMALS: no acute distress, patient oriented x3, no limitations and alert HENMT: COMMON NORMALS: normocephalic HEAD & SCALP: normocephalic Eye: COMMON NORMALS: EOMs intact bilaterally Neck/C-Spine: COMMON NORMALS: full ROM and supple Chest: COMMONS NORMALS: normal inspection of the chest Resp: COMMON NORMALS: normal respiratory effort, No retractions, No use of accessory muscles and clear to auscultation bilaterally AUSCULTATION: clear to auscultation bilaterally Cardio: COMMON NORMALS: regular rate, regular rhythm and No murmurs present (Cardio) RATE: regular rate RHYTHM: regular rhythm GI: COMMON NORMALS: Normal to inspection, nondistended, normoactive bowel sounds present and non-tender : COMMON NORMALS: Yes no CVA tenderness BLADDER/KIDNEY EXAM: Yes no CVA tenderness Back/Pelvis: COMMON NORMALS: no CVA tenderness and no thoracic nor lumbar tenderness Extremity: GENERAL: Yes normal exam except as noted Neuro: COMMON NORMALS: patient oriented x3 and no focal motor deficits SENSORIUM/ORIENTATION: Yes alert Psych: COMMON NORMALS: mental status grossly normal and cooperative Course Vital Signs: Vital signs: Vital Signs Temperature 98.0 F 10/01/22 11:15 Pulse Rate 74 10/01/22 15:58 Respiratory Rate 19 H 10/01/22 15:58 Blood Pressure 129/76 10/01/22 15:58 Pulse Oximetry 97 10/01/22 15:58 Oxygen Delivery Me thod 10/01/22 11:15 MDM - Chest Pain Medical Decision Making Medical decision making: Patient's pain was located on the right side of the anterior chest and resolved while he was here in the ER. This is pain he has had multiple times in the past. Initial troponin and repeat troponin is negative for an acute coronary syndrome. There is nothing to suggest at this time that patient is having an ACS. He was advised to follow-up with his primary care physician for an outpatient stress test. However, he should return if he develops chest pain that is constant and lasts for 30 minutes or more. Lab Data 10/01/22 12:00 10/01/22 12:00 Radiology Impressions Chest X-Ray 10/01/22 11:42 IMPRESSION: 1. No acute cardiopulmonary finding. 2. Chronic fibrous scarring and emphysematous bleb formation in the bilateral upper lobes. This is stable in appearance. Laboratory Results WBC 6.8 10^3/uL (4.0-10.0) 10/01/22 12:00 RBC 4.52 10^6/uL (4.1-5.3) 10/01/22 12:00 Hgb 12.7 g/dL (11.7-16.6) 10/01/22 12:00 Hct 37.9 % (42.0-52.0) L 10/01/22 12:00 MCV 83.8 fl (80-94) 10/01/22 12:00 MCH 28.1 pg (28.0-34.0) 10/01/22 12:00 MCHC 33.5 g/dL (30.0-36.0) 10/01/22 12:00 RDW 12.5 % (12.1-15.1) 10/01/22 12:00 Plt Count 269 10^3/cmm (130-400) 10/01/22 12:00 MPV 10.2 fL (7.4-10.4) 10/01/22 12:00 Neut % (Auto) 69.8 % 10/01/22 12:00 Lymph % (Auto) 19.6 % 10/01/22 12:00 [place] % (Auto) 7.7 % 10/01/22 12:00 Eos % (Auto) 2.2 % 10/01/22 12:00 Baso % (Auto) 0.4 % 10/01/22 12:00 Neut # (Auto) 4.72 10^3/uL (1.8-7.7) 10/01/22 12:00 Lymph # (Auto) 1.3 10^3/uL (0.8-4.8) 10/01/22 12:00 [place] # (Auto) 0.5 10^3/uL (0.2-0.9) 10/01/22 12:00 Eos # (Auto) 0.2 10^3/uL (0.0-0.8) 10/01/22 12:00 Baso # (Auto) 0.0 10^3/uL (0.0-0.1) 10/01/22 12:00 Nucleated RBC % (auto) 0 % 10/01/22 12:00 Nucleated RBCs # 0.0 /100WBC 10/01/22 12:00 Sodium 137 mmol/L (136-145) 10/01/22 12:00 Potassium 3.7 mmol/L (3.5-5.1) 10/01/22 12:00 Chloride 101 mmol/L (98-107) 10/01/22 12:00 Carbon Dioxide 27 mmol/L (22-29) 10/01/22 12:00 Anion Gap 12.7 (5-19) 10/01/22 12:00 BUN 20 mg/dL (6-20) 10/01/22 12:00 Creatinine 0.7 mg/dL (0.7-1.2) 10/01/22 12:00 GFR Calculation 115.8 mL/min (90-130) 10/01/22 12:00 Glucose 74 mg/dL (65-115) 10/01/22 12:00 Calculated Osmolality 285 mOsm/kg (285-295) 10/01/22 12:00 Calcium 9.0 mg/dL (8.5-10.5) 10/01/22 12:00 Total Bilirubin 0.4 mg/dL (0.15-1.2) 10/01/22 12:00 AST 18 U/L (0-40) 10/01/22 12:00 ALT 13 U/L (0-41) 10/01/22 12:00 Alkaline Phosphatase 115 U/L (40-130) 10/01/22 12:00 Troponin T Baseline 6 ng/L (0-15) 10/01/22 12:00 Troponin T 120 Minute 6.00 ng/L (0-15) 10/01/22 13:48 Delta Troponin T 0 ABS# (0-10) 10/01/22 13:48 NT-Pro-B Natriuret Pep 45 pg/mL (0-125) 10/01/22 12:00 Total Protein 7.8 g/dL (6.6-8.7) 10/01/22 12:00 Albumin 4.6 g/dL (3.5-5.2) 10/01/22 12:00 Globulin 3.2 g/dL (1.3-4.6) 10/01/22 12:00 EKG Data EKG 1: Interpretation: Sinus bradycardia, rate of 52, normal axis, normal QRS, no acute STEMI. Discharge Plan Discharge Patient Disposition: Home Clinical Impression: Atypical chest pain Condition: Stable Prescriptions: No Action albuterol sulfate 90 mcg/actuation HFA aerosol inhaler 2 inh inhalation Q4H PRN (Reason: shortness of breath or wheezing) Qty: 6.7 1RF Discharge Orders: Discharge ED (Routine); Ordered 10/01/22 Ordered By: Tato Rodriguez Discharge Diet: Usual diet Discharge Activity: Resume usual activity Patient Instructions: Opioid Safety, Pain Management Activity Restrictions/Additional Instructions: Continue using your usual home medications. Follow-up with your primary care physician to arrange for an outpatient stress test. Return to the ER if you develop chest pain that is constant and lasts for 30 minutes or more. Coding Level of Care Code ED Gear Hobber Operator for Nataly Fwsemaj Exam Comprehensive
--- NOTE | 2022-10-01 11:42 | ECG_ITS ---
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 Measurements Intervals [place] Rate: 57 P: 70 VT: 154 QRS: 56 QRSD: 108 T: 64 QT: 401 QTc: 390 Interpretive Statements SINUS BRADYCARDIA Compared to ECG 08/10/2019 18:07:51 Sinus rhythm no longer present Electronically Signed On 10-02-2022 7:41:56 COUNTY DIRECTOR by Alvaro Rios M.D. [id number]
--- NOTE | 2022-10-01 11:42 | XR_ITS ---
WS: [id number] Exam: XR chest 1V portable [id number] Date/Time of Exam: 10/01/2022 11:46 AM Reason For Exam: chest pain Comparison 08/12/2022. The lungs are clear and fully expanded. There are chronic interstitial changes and emphysematous bleb formation in the bilateral upper lobes the right more so than the left. No pleural effusions. Normal cardiomediastinal silhouette. Bony structures appear normal. Bilateral apical pleural thickening. XR/XR chest 1V portable [id number] IMPRESSION: 1. No acute cardiopulmonary finding. 2. Chronic fibrous scarring and emphysematous bleb formation in the bilateral u pper lobes. This is stable in appearance.
[2022-10-01 12:06] LABS: Basophils % 0.4 %; Eosinophils # 0.2 10^3/uL (0.0-0.8); Eosinophils % 2.2 %; Hematocrit 37.9 % (42.0-52.0); Hemoglobin 12.7 g/dL (11.7-16.6); Lymphocytes # 1.3 10^3/uL (0.8-4.8); Lymphocytes % 19.6 %; Mean Corpuscular HGB Conc 33.5 g/dL (30.0-36.0); Mean Corpuscular Hemoglobin 28.1 pg (28.0-34.0); Mean Corpuscular Volume 83.8 fl (80-94); Mean Platelet Volume 10.2 fL (7.4-10.4); Monocytes # 0.5 10^3/uL (0.2-0.9); Monocytes % 7.7 %; Neutrophils # 4.72 10^3/uL (1.8-7.7); Neutrophils % 69.8 %; Nucleated Red Blood Cells % 0 %; Platelet Count 269 10^3/cmm (130-400); Red Blood Count 4.52 10^6/uL (4.1-5.3); Red Cell Distribution Width 12.5 % (12.1-15.1); White Blood Count 6.8 10^3/uL (4.0-10.0)
[2022-10-01 12:42] LABS: Troponin(5th) Baseline 6 ng/L (0-15)
[2022-10-01 12:54] LABS: Alanine Aminotransferase 13 U/L (0-41); Albumin Level 4.6 g/dL (3.5-5.2); Alkaline Phosphatase 115 U/L (40-130); Anion Gap 12.7 (5-19); Aspartate Amino Transferase 18 U/L (0-40); Blood Urea Nitrogen 20 mg/dL (6-20); Carbon Dioxide 27 mmol/L (22-29); Chloride 101 mmol/L (98-107); Globulin 3.2 g/dL (1.3-4.6); Glomerular Filtration Rate 115.8 mL/min (90-130); Glucose 74 mg/dL (65-115); NT Pro B Type Natriuretic Pept 45 pg/mL (0-125); Osmolality Calculated 285 mOsm/kg (285-295); Potassium 3.7 mmol/L (3.5-5.1); Sodium 137 mmol/L (136-145); Total Bilirubin 0.4 mg/dL (0.15-1.2); Total Protein 7.8 g/dL (6.6-8.7)
--- NOTE | 2022-10-01 13:42 | ECG_ITS ---
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 Measurements Intervals [place] Rate: 52 P: 58 PA: 156 QRS: 43 QRSD: 110 T: 48 QT: 436 QTc: 407 Interpretive Statements SINUS BRADYCARDIA Compared to ECG 08/10/2019 18:07:51 Sinus rhythm no longer present Electronically Signed On 10-02-2022 7:48:59 TUNNELLER by Alvaro Rios M.D. [id number]
[2022-10-01 15:20] LABS: Troponin 5 2HR Delta 0 ABS# (0-10)
[2022-10-01 15:58] VITALS: BP 129/76; PULSE 74; RESP 19; O2SAT 97
== END 2022-10-01 16:01 | disposition home or self-care (01) ==
PROVIDERS: Emergency Provider Family Medicine
DX: R07.89 Other chest pain (principal)
CPT/HCPCS: 36415; 71045; 80053; 83880; 84484; 85025; 93005; 99285

== ENCOUNTER 2023-06-06 15:17 | Emergency (ER) | payer BC, SELFPAY ==
[2023-06-06 15:23] VITALS: BP 107/68; PULSE 61; RESP 16; TEMP 36.5; O2SAT 96; BMI 22.5
[2023-06-06 15:45] VITALS: BP 112/61; PULSE 56; O2SAT 93
--- NOTE | 2023-06-06 15:49 | CTR_ITS ---
PROCEDURE INFORMATION: Exam: CT Abdomen And Pelvis With Contrast Exam date and time: 06/06/2023 4:44 PM Age: 57 years old Clinical indication: Abdominal pain; Generalized; Prior surgery; Surgery date: 6+ months; Surgery type: Appy; Additional info: Abd pain TECHNIQUE: Imaging protocol: Computed tomography of the abdomen and pelvis with contrast. Radiation optimization: All CT scans at this facility use at least one of these dose optimization techniques: automated exposure control; mA and/or kV adjustment per patient size (includes targeted exams where dose is matched to clinical indication); or iterative reconstruction. Contrast material: OMNI 350; Contrast volume: 100 ml; Contrast route: INTRAVENOUS (IV); REPORTING DATA: Count of CT and Cardiac NM exams in prior 12 months: This patient has received 0 known CTs and 0 known cardiac nuclear medicine studies in the 12 months prior to the current study. COMPARISON: US scrotum [id number] 12/23/2021 6:54 PM RADIATION DOSE METRICS: Total DLP (mGy-cm): 405 FINDINGS: Liver: Normal. No mass. Gallbladder and bile ducts: Normal. No calcified stones. No ductal dilation. Pancreas: Normal. No ductal dilation. Spleen: Normal. No splenomegaly. Adrenal glands: Normal. No mass. Kidneys and ureters: There is a 1.1 cm hypodense structure along posterior cortex of the left kidney measuring 37 Hounsfield units. This is indeterminate but does not meet imaging criteria for a simple cyst. Consider three-phase renal CT or renal MRI for full evaluation to exclude a solid lesion. Stomach and bowel: Unremarkable. No obstruction. No mucosal thickening. Appendix: The appendix is not visualized. Intraperitoneal space: Unremarkable. No free air. No significant fluid collection. Vasculature: Unremarkable. No abdominal aortic aneurysm. Lymph nodes: Unremarkable. No enlarged lymph nodes. Urinary bladder: Unremarkable as visualized. Reproductive: Unremarkable as visualized. Bones/joints: Moderate to severe compression deformity of the T12 vertebral body, age indeterminate but appears chronic. Soft tissues: Unremarkable. CT/CT abdomen pelvis w con* [id number] IMPRESSION: 1. There is a 1.1 cm hypodense structure along posterior cortex of the left kidney measuring 37 Hounsfield units. This is indeterminate but does not meet imaging criteria for a simple cyst. Consider three-phase renal CT or renal MRI for full evaluation to exclude a solid lesion. Additional simple appearing cysts in the left and right kidneys are likely of no clinical significance. 2. No bowel obstruction or inflammatory process associated with the bowel. 3. No free air or significant free fluid in the abdomen or pelvis.
[2023-06-06 16:00] VITALS: BP 111/70; PULSE 60; O2SAT 93
[2023-06-06 16:03] LABS: Basophils # 0.1 10^3/uL (0.0-0.1); Basophils % 0.7 %; Eosinophils # 0.1 10^3/uL (0.0-0.8); Eosinophils % 1.4 %; Hematocrit 37.1 % (37-53); Lymphocytes # 1.2 10^3/uL (0.8-4.8); Lymphocytes % 14.6 %; Mean Corpuscular HGB Conc 34.8 g/dL (30-55); Mean Corpuscular Hemoglobin 28.9 pg (27-33); Monocytes # 0.6 10^3/uL (0.2-0.9); Monocytes % 7.1 %; Neutrophils % 75.8 %; Nucleated Red Blood Cells % 0 %; Platelet Count 267 10^3/cmm (157-399); Red Blood Count 4.47 10^6/uL (3.85-5.65); Red Cell Distribution Width 12.4 % (12.1-15.1); White Blood Count 8.31 10^3/uL (3.29-11.43)
--- NOTE | 2023-06-06 16:15 | ECG_ITS ---
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 Measurements Intervals [place] Rate: 55 P: 66 [place]: 147 QRS: 63 QRSD: 93 T: 57 QT: 428 QTc: 412 Interpretive Statements SINUS BRADYCARDIA Compared to ECG 10/01/2022 13:53:49 No significant changes Electronically Signed On 06-07-2023 11:00:13 CDT by Shira Rico M.D. [id number]
--- NOTE | 2023-06-06 16:21 | ED_ITS ---
Documented by User: Ilya Brown DO 06/07/23 06:33 HPI - Abdominal Pain General: Chief Complaint: Abdominal Pain Stated Complaint: left abd pain Time Seen by Provider: 06/06/23 15:45 Source: patient Mode of arrival: ambulatory History of Present Illness: 57-year-old male who presents emergency room with complaints of left upper quadrant pain. Nausea without vomiting no diarrhea. No fever sweats or chills patient does not drink alcohol. He denies any medication melena hematemesis coffee-ground emesis no dysuria urgency or frequency MD elicited complaint: abdominal pain Pertinent past history: none Onset (ago): minute(s) Pain Consistency: constant Location: None Quality: cramping Exacerbating factors: nothing Relieving factors: nothing Associated Symptoms: Reports nausea; Denies anorexia, belching, bloating, change in bowel habits, change in stool character, chills, coffee ground emesis, constipation, GI cramping, diarrhea, d yspepsia, dysuria, excessive flatus, fever(s), heartburn, hematochezia, hematuria, hematemesis, fecal incontinence, loose stools, melena, poor appetite, syncope and vomiting Review of Systems Const: Denies: fever(s), chills, fatigue or malaise ENMT: Denies: throat pain, ear or mastoid pain, nasal discharge or nasal congestion Card: Denies: chest pain, palpitations, irregular heart rhythm or syncope Resp: Denies: dyspnea, productive cough or non-productive cough GI: Reports: abdominal pain and nausea; Denies: vomiting, hematemesis, coffee ground emesis, heartburn, diarrhea, constipation, bloating, GI cramping, belching, excessive flatus, fecal incontinence, change in bowel habits, change in stool character, hematochezia or melena : Denies: flank pain, dysuria, urinary frequency, urinary urgency or hematuria Skin/Breast: Denies: rash or pruritus PFSH ED PFSH: Medical History No pertinent family history Surgical History No pertinent past surgical history Physical Exam Const: GENERAL APPEARANCE: cooperative and comfortable ORIENTATION/CONSCIOUSNESS: Yes awake, Yes oriented to person, Yes oriented to place and Yes oriented to time HENMT: COMMON NORMALS: normocephalic, atraumatic and hearing grossly normal bilaterally HEAD & SCALP: normocephalic and atraumatic Resp: COMMON NORMALS: normal respiratory effort, No retractions, No use of accessory muscles and clear to auscultation bilaterally AUSCULTATION: clear to auscultation bilaterally Cardio: COMMON NORMALS: regular rate, regular rhythm and No murmurs present (Cardio) RATE: regular rate RHYTHM: regular rhythm GI: AUSCULTATION: Yes normoactive bowel sounds PALPATION: Yes Tenderness to palpation present (GI) Details: LUQ and No Guarding due to palpation present (GI) Extremity: COMMON NORMALS: normal to inspection, capillary refill normal, no clubbing, cyanosis or edema, no calf tenderness and no pedal edema Neuro: SENSORIUM/ORIENTATION: Yes oriented to person, Yes oriented to place and Yes oriented to time Skin: COMMON NORMALS: no rashes or lesions noted GENERAL SKIN EXAM: no rashes or lesions noted Course Vital Signs: Vital signs: Vital Signs Temperature 97.7 F 06/06/23 15:23 Pulse Rate 61 06/06/23 18:56 Respiratory Rate 16 06/06/23 15:23 Blood Pressure 145/86 06/06/23 18:56 Pulse Oximetry 100 06/06/23 18:56 Oxygen Delivery Me thod Room Air 06/06/23 17:30 MDM - Abdominal Pain Medical Decision Making Care signed out to Dr. North at change of shift. See final notes for diagnosis and disposition. Patient presents with mild abdominal pain I did tell him of the possible mass finding on his left kidney forming he is to follow-up with PCP or urology to get a further work-up blood work here is otherwise normal he is stable for discharge return if worsening. Lab Data 06/06/23 15:58 06/06/23 15:58 Labs/Radiology: Radiology Impressions Abdomen/Pelvis CT 06/06/23 15:49 IMPRESSION: 1. There is a 1.1 cm hypodense structure along posterior cortex of the left kidney measuring 37 Hounsfield units. This is indeterminate but does not meet imaging criteria for a simple cyst. Consider three-phase renal CT or renal MRI for full evaluation to exclude a solid lesion. Additional simple appearing cysts in the left and right kidneys are likely of no clinical significance. 2. No bowel obstruction or inflammatory process associated with the bowel. 3. No free air or significant free fluid in the abdomen or pelvis. Laboratory Results WBC 8.31 10^3/uL (3.29-11.43) 06/06/23 15:58 RBC 4.47 10^6/uL (3.85-5.65) 06/06/23 15:58 Hgb 12.90 g/dL (11.27-16.99) 06/06/23 15:58 Hct 37.1 % (37-53) 06/06/23 15:58 MCV 83.0 fl (82-101) 06/06/23 15:58 MCH 28.9 pg (27-33) 06/06/23 15:58 MCHC 34.8 g/dL (30-55) 06/06/23 15:58 RDW 12.4 % (12.1-15.1) 06/06/23 15:58 Plt Count 267 10^3/cmm (157-399) 06/06/23 15:58 MPV 10.0 fL (7.4-10.4) 06/06/23 15:58 Neut % (Auto) 75.8 % 06/06/23 15:58 Lymph % (Auto) 14.6 % 06/06/23 15:58 [place] % (Auto) 7.1 % 06/06/23 15:58 Eos % (Auto) 1.4 % 06/06/23 15:58 Baso % (Auto) 0.7 % 06/06/23 15:58 Neut # (Auto) 6.30 10^3/uL (1.8-7.7) 06/06/23 15:58 Lymph # (Auto) 1.2 10^3/uL (0.8-4.8) 06/06/23 15:58 [place] # (Auto) 0.6 10^3/uL (0.2-0.9) 06/06/23 15:58 Eos # (Auto) 0.1 10^3/uL (0.0-0.8) 06/06/23 15:58 Baso # (Auto) 0.1 10^3/uL (0.0-0.1) 06/06/23 15:58 Nucleated RBC % (auto) 0 % 06/06/23 15:58 Nucleated RBCs # 0.0 /100WBC 06/06/23 15:58 Sodium 142 mmol/L (136-145) 06/06/23 15:58 Potassium 3.9 mmol/L (3.5-5.1) 06/06/23 15:58 Chloride 105 mmol/L (98-107) 06/06/23 15:58 Carbon Dioxide 24 mmol/L (22-29) 06/06/23 15:58 Anion Gap 16.9 (5-19) 06/06/23 15:58 BUN 19 mg/dL (6-20) 06/06/23 15:58 Creatinine 0.9 mg/dL (0.7-1.2) 06/06/23 15:58 GFR Calculation 86.7 mL/min (90-130) L 06/06/23 15:58 Glucose 88 mg/dL (65-115) 06/06/23 15:58 Calculated Osmolality 296 mOsm/kg (285-295) H 06/06/23 15:58 Calcium 9.4 mg/dL (8.5-10.5) 06/06/23 15:58 Total Bilirubin 0.5 mg/dL (0.15-1.2) 06/06/23 15:58 AST 21 U/L (0-40) 06/06/23 15:58 ALT 15 U/L (0-41) 06/06/23 15:58 Alkaline Phosphatase 124 U/L (40-130) 06/06/23 15:58 Total Protein 7.9 g/dL (6.6-8.7) 06/06/23 15:58 Albumin 4.9 g/dL (3.5-5.2) 06/06/23 15:58 Globulin 3.0 g/dL (1.3-4.6) 06/06/23 15:58 Lipase 29 U/L (13-60) 06/06/23 15:58 Urine Color Dark yellow (Yellow) 06/06/23 17:41 Urine Appearance Clear (CLEAR) 06/06/23 17:41 Urine pH 5 (5-7) 06/06/23 17:41 Ur Specific [place] 1.020 (1.005-1.030) 06/06/23 17:41 Urine Protein Neg (Negative) 06/06/23 17:41 Urine Glucose (UA) Norm (Normal) 06/06/23 17:41 Urine Ketones Negative (Negative) 06/06/23 17:41 Urine Blood Neg (Negative) 06/06/23 17:41 Urine Nitrate Negative (Negative) 06/06/23 17:41 Urine Bilirubin Neg (Negative) 06/06/23 17:41 Urine Urobilinogen 1 mg/dL (Negative) H 06/06/23 17:41 Ur Leukocyte Esterase Negative (Negative) 06/06/23 17:41 Discharge Plan Discharge Patient Disposition: Home Clinical Impression: Abdominal pain, Kidney mass Condition: Stable Prescriptions: No Action albuterol sulfate 90 mcg/actuation HFA aerosol inhaler 2 inh inhalation Q4H PRN (Reason: shortness of breath or wheezing) Qty: 6.7 1RF lisinopril 2.5 mg tablet 2.5 mg PO DAILY amoxicillin-pot clavulanate 875-125 mg tablet 1 tab PO BID Men's Multi-Vitamin Tablet 1 tab PO DAILY Discharge Orders: Discharge ED (Routine); Ordered 06/06/23 Ordered By: Carolina North Discharge Diet: Advance as tolerated Discharge Activity: Resume usual activity Patient Instructions: Abdominal Pain - Adult, Abdominal Pain (ED) Activity Restrictions/Additional Instructions: Need to follow-up with urology or your PCP soon as possible for follow-up on the renal mass seen on CT Coding Level of Care Code ED Computer Hardware Engineer for Chg Fwd Documented by User: Carolina North MD 06/06/23 18:45 HPI - Abdominal Pain General: Chief Complaint: Abdominal Pain Stated Complaint: left abd pain Time Seen by Provider: 06/06/23 15:45 PFSH ED PFSH: Medical History No pertinent family history Surgical History No pertinent past surgical history Course Vital Signs: Vital signs: Vital Signs Temperature 97.7 F 06/06/23 15:23 Pulse Rate 61 06/06/23 18:56 Respiratory Rate 16 06/06/23 15:23 Blood Pressure 145/86 06/06/23 18:56 Pulse Oximetry 100 06/06/23 18:56 Oxygen Delivery Me thod Room Air 06/06/23 17:30 MDM - Abdominal Pain Medical Decision Making Patient presents with mild abdominal pain I did tell him of the possible mass finding on his left kidney forming he is to follow-up with PCP or urology to get a further work-up blood work here is otherwise normal he is stable for discharge return if worsening. Medical Records I reviewed the patient's medical records. Lab Data I reviewed the patient's lab results. 06/06/23 15:58 06/06/23 15:58 Labs/Radiology: Radiology Impressions Abdomen/Pelvis CT 06/06/23 15:49 IMPRESSION: 1. There is a 1.1 cm hypodense structure along posterior cortex of the left kidney measuring 37 Hounsfield units. This is indeterminate but does not meet imaging criteria for a simple cyst. Consider three-phase renal CT or renal MRI for full evaluation to exclude a solid lesion. Additional simple appearing cysts in the left and right kidneys are likely of no clinical significance. 2. No bowel obstruction or inflammatory process associated with the bowel. 3. No free air or significant free fluid in the abdomen or pelvis. Laboratory Results WBC 8.31 10^3/uL (3.29-11.43) 06/06/23 15:58 RBC 4.47 10^6/uL (3.85-5.65) 06/06/23 15:58 Hgb 12.90 g/dL (11.27-16.99) 06/06/23 15:58 Hct 37.1 % (37-53) 06/06/23 15:58 MCV 83.0 fl (82-101) 06/06/23 15:58 MCH 28.9 pg (27-33) 06/06/23 15:58 MCHC 34.8 g/dL (30-55) 06/06/23 15:58 RDW 12.4 % (12.1-15.1) 06/06/23 15:58 Plt Count 267 10^3/cmm (157-399) 06/06/23 15:58 MPV 10.0 fL (7.4-10.4) 06/06/23 15:58 Neut % (Auto) 75.8 % 06/06/23 15:58 Lymph % (Auto) 14.6 % 06/06/23 15:58 [place] % (Auto) 7.1 % 06/06/23 15:58 Eos % (Auto) 1.4 % 06/06/23 15:58 Baso % (Auto) 0.7 % 06/06/23 15:58 Neut # (Auto) 6.30 10^3/uL (1.8-7.7) 06/06/23 15:58 Lymph # (Auto) 1.2 10^3/uL (0.8-4.8) 06/06/23 15:58 [place] # (Auto) 0.6 10^3/uL (0.2-0.9) 06/06/23 15:58 Eos # (Auto) 0.1 10^3/uL (0.0-0.8) 06/06/23 15:58 Baso # (Auto) 0.1 10^3/uL (0.0-0.1) 06/06/23 15:58 Nucleated RBC % (auto) 0 % 06/06/23 15:58 Nucleated RBCs # 0.0 /100WBC 06/06/23 15:58 Sodium 142 mmol/L (136-145) 06/06/23 15:58 Potassium 3.9 mmol/L (3.5-5.1) 06/06/23 15:58 Chloride 105 mmol/L (98-107) 06/06/23 15:58 Carbon Dioxide 24 mmol/L (22-29) 06/06/23 15:58 Anion Gap 16.9 (5-19) 06/06/23 15:58 BUN 19 mg/dL (6-20) 06/06/23 15:58 Creatinine 0.9 mg/dL (0.7-1.2) 06/06/23 15:58 GFR Calculation 86.7 mL/min (90-130) L 06/06/23 15:58 Glucose 88 mg/dL (65-115) 06/06/23 15:58 Calculated Osmolality 296 mOsm/kg (285-295) H 06/06/23 15:58 Calcium 9.4 mg/dL (8.5-10.5) 06/06/23 15:58 Total Bilirubin 0.5 mg/dL (0.15-1.2) 06/06/23 15:58 AST 21 U/L (0-40) 06/06/23 15:58 ALT 15 U/L (0-41) 06/06/23 15:58 Alkaline Phosphatase 124 U/L (40-130) 06/06/23 15:58 Total Protein 7.9 g/dL (6.6-8.7) 06/06/23 15:58 Albumin 4.9 g/dL (3.5-5.2) 06/06/23 15:58 Globulin 3.0 g/dL (1.3-4.6) 06/06/23 15:58 Lipase 29 U/L (13-60) 06/06/23 15:58 Urine Color Dark yellow (Yellow) 06/06/23 17:41 Urine Appearance Clear (CLEAR) 06/06/23 17:41 Urine pH 5 (5-7) 06/06/23 17:41 Ur Specific [place] 1.020 (1.005-1.030) 06/06/23 17:41 Urine Protein Neg (Negative) 06/06/23 17:41 Urine Glucose (UA) Norm (Normal) 06/06/23 17:41 Urine Ketones Negative (Negative) 06/06/23 17:41 Urine Blood Neg (Negative) 06/06/23 17:41 Urine Nitrate Negative (Negative) 06/06/23 17:41 Urine Bilirubin Neg (Negative) 06/06/23 17:41 Urine Urobilinogen 1 mg/dL (Negative) H 06/06/23 17:41 Ur Leukocyte Esterase Negative (Negative) 06/06/23 17:41 All radiology interpretation(s) finalized by discharge Discharge Plan Discharge Patient Disposition: Home Clinical Impression: Abdominal pain, Kidney mass Condition: Stable Prescriptions: No Action albuterol sulfate 90 mcg/actuation HFA aerosol inhaler 2 inh inhalation Q4H PRN (Reason: shortness of breath or wheezing) Qty: 6.7 1RF lisinopril 2.5 mg tablet 2.5 mg PO DAILY amoxicillin-pot clavulanate 875-125 mg tablet 1 tab PO BID Men's Multi-Vitamin Tablet 1 tab PO DAILY Discharge Orders: Discharge ED (Routine); Ordered 06/06/23 Ordered By: Carolina North Discharge Diet: Advance as tolerated Discharge Activity: Resume usual activity Patient Instructions: Abdominal Pain - Adult, Abdominal Pain (ED) Activity Restrictions/Additional Instructions: Need to follow-up with urology or your PCP soon as possible for follow-up on the renal mass seen on CT Coding Level of Care Code ED Computer Hardware Engineer for Nataly Craig
[2023-06-06 16:24] LABS: Alanine Aminotransferase 15 U/L (0-41); Albumin Level 4.9 g/dL (3.5-5.2); Alkaline Phosphatase 124 U/L (40-130); Anion Gap 16.9 (5-19); Aspartate Amino Transferase 21 U/L (0-40); Blood Urea Nitrogen 19 mg/dL (6-20); Calcium 9.4 mg/dL (8.5-10.5); Carbon Dioxide 24 mmol/L (22-29); Chloride 105 mmol/L (98-107); Glomerular Filtration Rate 86.7 mL/min (90-130); Glucose 88 mg/dL (65-115); Lipase 29 U/L (13-60); Osmolality Calculated 296 mOsm/kg (285-295); Potassium 3.9 mmol/L (3.5-5.1); Sodium 142 mmol/L (136-145); Total Bilirubin 0.5 mg/dL (0.15-1.2); Total Protein 7.9 g/dL (6.6-8.7)
[2023-06-06] MEDS: sodium chloride 0.9% 1,000 ML 999 ML IV (16:26)
[2023-06-06] MEDS: ondansetron 2 mg/ML SDV 2 mL 4 MG IVP (16:27)
[2023-06-06 16:30] VITALS: BP 132/77; PULSE 56; O2SAT 95
[2023-06-06] MEDS: iohexol 350 mg/mL 500 mL Btl (per mL) IV (17:14)
[2023-06-06 17:30] VITALS: BP 146/85; PULSE 65; O2SAT 93
[2023-06-06 17:50] LABS: Add Urine Microscopic? NO; Charge for UA Resulting for Rev
[2023-06-06 17:54] LABS: Bilirubin Urine Neg (Negative); Blood Urine Neg (Negative); Glucose Urine UA Norm (Normal); Ketones Urine Negative (Negative); Leukocyte Esterase Urine Negative (Negative); Nitrate Urine Negative (Negative); Protein Urine Neg (Negative); Urine Appearance Clear (CLEAR); Urine Color Dark Yellow (Yellow); Urobilinogen Urine 1 mg/dL (Negative); pH Urine 5 (5-7)
[2023-06-06 18:56] VITALS: BP 145/86; PULSE 61; O2SAT 100
--- NOTE | 2023-06-09 17:21 | PC.SOCIAL ---
ER f/u Patient reports that he has an appt to see his primary care doctor this upcoming Saturday; and she is going to order an MRI for patient.
== END 2023-06-06 18:57 | disposition home or self-care (01) ==
PROVIDERS: Family Medicine; Emergency Provider Emergency Medicine
DX: R10.12 Left upper quadrant pain (principal); N28.89 Other specified disorders of kidney and ureter
CPT/HCPCS: 36415; 74177; 80053; 81003; 83690; 85025; 93005; 96361; 96374; 99285; J2405; J7030; Q9967

== ENCOUNTER 2023-09-15 01:20 | Emergency (ER) | payer BC, SELFPAY ==
[2023-09-15 01:21] VITALS: BP 153/82; PULSE 70; RESP 18; TEMP 36.8; O2SAT 94; BMI 22.8
--- NOTE | 2023-09-15 01:25 | ECG_ITS ---
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 Measurements Intervals [place] Rate: 76 P: 62 NE: 150 QRS: 53 QRSD: 97 T: 50 QT: 374 QTc: 422 Interpretive Statements SINUS RHYTHM PROBABLE SEPTAL MYOCARDIAL INFARCTION , OF INDETERMINATE AGE [35 ms Q WAVE IN V1/V2] Compared to ECG 06/06/2023 16:15:45 Myocardial infarct finding now present Sinus bradycardia no longer present Electronically Signed On 09-15-2023 16:23:35 BISTRO ATTENDANT by Alvaro Rios M.D. [id number]
--- NOTE | 2023-09-15 01:28 | XRR_ITS ---
PROCEDURE INFORMATION: Exam: XR Chest Exam date and time: 09/15/2023 1:32 AM Age: 58 years old Clinical indication: Chest pressure; Patient HX: C/O chest pain TECHNIQUE: Imaging protocol: Radiologic exam of the chest. Views: 1 view. COMPARISON: CR XR chest 1V portable [id number] 10/01/2022 11:47 AM FINDINGS: Lungs: Unremarkable. No consolidation. Pleural spaces: Unremarkable. No pleural effusion. No pneumothorax. Heart/Mediastinum: Unremarkable. No cardiomegaly. Bones/joints: Unremarkable. XR/XR chest 1V portable [id number] IMPRESSION: No acute findings.
--- NOTE | 2023-09-15 01:29 | W.ED.CHESTPA ---
HPI - Chest Pain General: Chief Complaint: Chest Pain Stated Complaint: CP Time Seen by Provider: 09/15/23 01:22 History of Present Illness: 58-year-old male who had been in an argument with his significant other earlier in the evening, and had taken to a walk. He does not gently developed chest discomfort, a pleuritic left-sided discomfort while walking. He still in pain. He rates his pain an 8 out of 10. He has noticed a cough recently. No fever. No leg swelling. MD complaint: chest pain Associated symptoms: Deny abdominal pain, dyspnea, fever(s), nausea, palpitations or vomiting Review of Systems Const: Denies: fever(s), chills or body aches Eyes: Denies: change in vision Card: Reports: chest pain; Denies: palpitations Resp: Reports: non-productive cough; Denies: dyspnea, productive cough or wheezing GI: Denies: abdominal pain, nausea, vomiting, diarrhea or hematochezia Skin/Breast: Denies: rash Neuro: Denies: headache(s), weakness in extremities, dizziness or confusion [facility] ED PFSH: Medical History No pertinent family history Surgical History No pertinent past surgical history Physical Exam Const: COMMON NORMALS: no acute distress GENERAL APPEARANCE: cooperative; not ill appearing and not frail appearing HENMT: COMMON NORMALS: normocephalic, atraumatic and Normal external nose present HEAD & SCALP: normocephalic and atraumatic FACE & SINUS: normal facial exam and face symmetric NOSE: Normal external nose present Eye: COMMON NORMALS: Equal, round and reactive pupils present and EOMs intact bilaterally PUPIL: Yes Equal, round and reactive pupils present Neck/C-Spine: GENERAL: Yes trachea midline Chest: CHEST: Yes Symmetrical chest wall rise and Yes tenderness (left ant chest wall) Resp: COMMON NORMALS: normal respiratory effort, No retractions, No use of accessory muscles and clear to auscultation bilaterally AUSCULTATION: clear to auscultation bilaterally Cardio: COMMON NORMALS: regular rate and regular rhythm RATE: regular rate RHYTHM: regular rhythm GI: COMMON NORMALS: Normal to inspection, nondistended, normoactive bowel sounds present Extremity: COMMON NORMALS: no pedal edema Neuro: JAMEL COMA SCALE: document GCS findings [place] coma scale eye opening: Spontaneous [place] coma scale verbal response: Orientated [place] coma scale motor response: Obey commands Jamel coma scale total score: 15 SENSORY EXAM: Yes extremities (intact) Psych: COMMON NORMALS: speech normal SPEECH: Yes normal speech Skin: COMMON NORMALS: no rashes or lesions noted GENERAL SKIN EXAM: no rashes or lesions noted Course Vital Signs: Vital signs: Vital Signs Temperature 98.2 F 09/15/23 01:21 Pulse Rate 74 09/15/23 03:32 Respiratory Rate 21 H 09/15/23 03:32 Blood Pressure 130/86 09/15/23 03:32 Pulse Oximetry 95 09/15/23 03:32 Oxygen Delivery Me thod Room Air 09/15/23 02:19 MDM - Chest Pain Medical Decision Making Reproducible sharp atypical chest pain. Vitals are stable. CBC is normal. Chest x-ray is negative. Potassium is 3.3. Troponin is 8. EKG shows a normal sinus rhythm with a normal axis, normal intervals, no acute ST wave changes. Rate is 75. Pain is improved after morphine. He will be discharged home. Lab Data 09/15/23 01:40 09/15/23 01:40 Radiology Impressions Chest X-Ray 09/15/23 01:28 IMPRESSION: No acute findings. Laboratory Results WBC 8.72 10^3/uL (3.29-11.43) 09/15/23 01:40 RBC 4.24 10^6/uL (3.85-5.65) 09/15/23 01:40 Hgb 12.30 g/dL (11.27-16.99) 09/15/23 01:40 Hct 35.1 % (37-53) L 09/15/23 01:40 MCV 82.8 fl (82-101) 09/15/23 01:40 MCH 29.0 pg (27-33) 09/15/23 01:40 MCHC 35.0 g/dL (30-55) 09/15/23 01:40 RDW 12.0 % (12.1-15.1) L 09/15/23 01:40 Plt Count 260 10^3/cmm (157-399) 09/15/23 01:40 MPV 10.0 fL (7.4-10.4) 09/15/23 01:40 Neut % (Auto) 78.2 % 09/15/23 01:40 Lymph % (Auto) 12.8 % 09/15/23 01:40 [place] % (Auto) 7.7 % 09/15/23 01:40 Eos % (Auto) 0.6 % 09/15/23 01:40 Baso % (Auto) 0.5 % 09/15/23 01:40 Neut # (Auto) 6.82 10^3/uL (1.8-7.7) 09/15/23 01:40 Lymph # (Auto) 1.1 10^3/uL (0.8-4.8) 09/15/23 01:40 [place] # (Auto) 0.7 10^3/uL (0.2-0.9) 09/15/23 01:40 Eos # (Auto) 0.1 10^3/uL (0.0-0.8) 09/15/23 01:40 Baso # (Auto) 0.0 10^3/uL (0.0-0.1) 09/15/23 01:40 Nucleated RBC % (auto) 0 % 09/15/23 01:40 Nucleated RBCs # 0.0 /100WBC 09/15/23 01:40 Sodium 137 mmol/L (136-145) 09/15/23 01:40 Potassium 3.3 mmol/L (3.5-5.1) L 09/15/23 01:40 Chloride 100 mmol/L (98-107) 09/15/23 01:40 Carbon Dioxide 27 mmol/L (22-29) 09/15/23 01:40 Anion Gap 13.3 (5-19) 09/15/23 01:40 BUN 22 mg/dL (6-20) H 09/15/23 01:40 Creatinine 0.9 mg/dL (0.7-1.2) 09/15/23 01:40 GFR Calculation 86.4 mL/min (90-130) L 09/15/23 01:40 Glucose 100 mg/dL (65-115) 09/15/23 01:40 Calculated Osmolality 287 mOsm/kg (285-295) 09/15/23 01:40 Calcium 9.2 mg/dL (8.5-10.5) 09/15/23 01:40 Total Bilirubin 0.5 mg/dL (0.15-1.2) 09/15/23 01:40 AST 18 U/L (0-40) 09/15/23 01:40 ALT 11 U/L (0-41) 09/15/23 01:40 Alkaline Phosphatase 118 U/L (40-130) 09/15/23 01:40 Troponin T Baseline 8 ng/L (0-15) 09/15/23 01:40 NT-Pro-B Natriuret Pep 76 pg/mL (0-125) 09/15/23 01:40 Total Protein 7.6 g/dL (6.6-8.7) 09/15/23 01:40 Albumin 4.2 g/dL (3.5-5.2) 09/15/23 01:40 Globulin 3.4 g/dL (1.3-4.6) 09/15/23 01:40 Urine Color Yellow (Yellow) 09/15/23 02:22 Urine Appearance Clear (CLEAR) 09/15/23 02:22 Urine pH 5 (5-7) 09/15/23 02:22 Ur Specific [place] 1.025 (1.005-1.030) 09/15/23 02:22 Urine Protein Neg (Negative) 09/15/23 02:22 Urine Glucose (UA) Norm (Normal) 09/15/23 02:22 Urine Ketones Negative (Negative) 09/15/23 02:22 Urine Blood Neg (Negative) 09/15/23 02:22 Urine Nitrate Negative (Negative) 09/15/23 02:22 Urine Bilirubin Neg (Negative) 09/15/23 02:22 Urine Urobilinogen 1 mg/dL (Negative) H 09/15/23 02:22 Ur Leukocyte Esterase Negative (Negative) 09/15/23 02:22 All radiology interpretation(s) finalized by discharge Discharge Plan Discharge Patient Disposition: Home Clinical Impression: Atypical chest pain Condition: Stable Prescriptions: New ketorolac 10 mg tablet 10 mg PO TID PRN (Reason: pain) Qty: 10 0RF No Action albuterol sulfate 90 mcg/actuation HFA aerosol inhaler 2 inh inhalation Q4H PRN (Reason: shortness of breath or wheezing) Qty: 6.7 1RF lisinopril 2.5 mg tablet 2.5 mg PO DAILY amoxicillin-pot clavulanate 875-125 mg tablet 1 tab PO BID Men's Multi-Vitamin Tablet 1 tab PO DAILY Discharge Orders: Discharge ED (Routine); Ordered 09/15/23 Ordered By: Arie Tracey Patient Instructions: Chest Pain (ED), Opioid Safety, Pain Management Activity Restrictions/Additional Instructions: See your doctor next week. Return for worsening pain despite treatment, shortness of breath, fever, other concerning symptoms. Take medication scheduled for the first 2 days, then as needed. Coding Level of Care Code ED Camp Recreation Specialist for Nataly Craig
[2023-09-15 01:36] VITALS: BP 153/82; PULSE 71; RESP 18; O2SAT 96
[2023-09-15 01:50] LABS: Basophils % 0.5 %; Eosinophils # 0.1 10^3/uL (0.0-0.8); Eosinophils % 0.6 %; Hematocrit 35.1 % (37-53); Lymphocytes # 1.1 10^3/uL (0.8-4.8); Lymphocytes % 12.8 %; Mean Corpuscular Volume 82.8 fl (82-101); Monocytes # 0.7 10^3/uL (0.2-0.9); Monocytes % 7.7 %; Neutrophils # 6.82 10^3/uL (1.8-7.7); Neutrophils % 78.2 %; Nucleated Red Blood Cells % 0 %; Platelet Count 260 10^3/cmm (157-399); Red Blood Count 4.24 10^6/uL (3.85-5.65); White Blood Count 8.72 10^3/uL (3.29-11.43)
[2023-09-15 02:11] LABS: Troponin(5th) Baseline 8 ng/L (0-15)
[2023-09-15] MEDS: ondansetron 2 mg/ML SDV 2 mL 4 MG IVP (02:18)
[2023-09-15 02:19] VITALS: BP 153/82; PULSE 59; RESP 20; O2SAT 95
[2023-09-15] MEDS: morphine 4 mg/mL SDV 1 mL IVP (02:20)
[2023-09-15 02:21] LABS: Alanine Aminotransferase 11 U/L (0-41); Albumin Level 4.2 g/dL (3.5-5.2); Alkaline Phosphatase 118 U/L (40-130); Anion Gap 13.3 (5-19); Aspartate Amino Transferase 18 U/L (0-40); Blood Urea Nitrogen 22 mg/dL (6-20); Calcium 9.2 mg/dL (8.5-10.5); Carbon Dioxide 27 mmol/L (22-29); Chloride 100 mmol/L (98-107); Creatinine Clr Calc Pharmacy 90.8105; Globulin 3.4 g/dL (1.3-4.6); Glomerular Filtration Rate 86.4 mL/min (90-130); Glucose 100 mg/dL (65-115); NT Pro B Type Natriuretic Pept 76 pg/mL (0-125); Osmolality Calculated 287 mOsm/kg (285-295); Potassium 3.3 mmol/L (3.5-5.1); Sodium 137 mmol/L (136-145); Total Bilirubin 0.5 mg/dL (0.15-1.2); Total Protein 7.6 g/dL (6.6-8.7)
[2023-09-15 02:25] LABS: Add Urine Microscopic? NO; Charge for UA Resulting for Rev
[2023-09-15 02:28] LABS: Urine Color Yellow (Yellow)
[2023-09-15 02:29] LABS: Bilirubin Urine Neg (Negative); Blood Urine Neg (Negative); Glucose Urine UA Norm (Normal); Ketones Urine Negative (Negative); Leukocyte Esterase Urine Negative (Negative); Nitrate Urine Negative (Negative); Protein Urine Neg (Negative); Specific Gravity, Urine 1.025 (1.005-1.030); Urine Appearance Clear (CLEAR); Urobilinogen Urine 1 mg/dL (Negative); pH Urine 5 (5-7)
[2023-09-15 03:32] VITALS: BP 130/86; PULSE 74; RESP 21; O2SAT 95
== END 2023-09-15 03:47 | disposition home or self-care (01) ==
PROVIDERS: Emergency Provider Emergency Medicine
DX: R07.89 Other chest pain (principal)
CPT/HCPCS: 71045; 80053; 81003; 83880; 84484; 85025; 93005; 96374; 96375; 99285; J2270; J2405

== ENCOUNTER 2025-03-06 20:09 | Emergency (ER) | payer OTHER, SELFPAY ==
[2025-03-06 20:12] VITALS: BP 154/75; PULSE 63; RESP 18; TEMP 36.7; O2SAT 97; BMI 22.9
--- NOTE | 2025-03-06 20:16 | ECG_ITS ---
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 Measurements Intervals [place] Rate: 57 P: 71 [place]: 156 QRS: 55 QRSD: 101 T: 45 QT: 402 QTc: 391 Interpretive Statements SINUS BRADYCARDIA VOLTAGE CRITERIA FOR LVH [MEETS CRITERIA IN ONE OF: R(aVL), S(V1), R(V5), R(V5/V6)+S(V1)] Compared to ECG 09/15/2023 01:25:00 Left ventricular hypertrophy now present Sinus rhythm no longer present Myocardial infarct finding no longer present Electronically Signed On 03-11-2025 09:14:24 CDT by Alvaro Rios M.D. [email or web address] [id number]
--- OUTSIDE RECORDS SUMMARY | 2025-03-06 20:18 | XMS_ITS | Clinical Summary ---
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 90 Tablet 3 4 Active ondansetron (ZOFRAN ODT) 4 mg Tablet, Rapid DissolveIndicatio ns:Nausea and vomiting, unspecified vomiting type Take 1 Tablet (4 mg) by mouth every 8 hours as needed for Nausea/Emesis . Dissolve tablet on top of tongue, then swallow with saliva. 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 Encounters Date Type Department Care Team Description 02/24/2025 External Device Data STL ABSTRACTION Provider, Abstract from Last 3 Months Immunizations Immunization Administration Dates Next Due INFLUENZA VACCINE TRIVALENT SPLIT VIRUS, (6 MOS UP), 0.5ML (PF), IM 07/01/2024 Social History Tobacco Use Types Packs/Day Years Used Date Smoking Tobacco: Never Passive Smoke Exposure: Never Smokeless Tobacco: Never Tobacco Cessation:Counseling Given: No Alcohol Use Standard Drinks/Week Comments Not Currently 0 (1 standard drink = 0.6 oz pur e alcohol) Sex and Gender Information Value Date Recorded Sex Assigned at Not on file Legal 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 Gender Identity Not on file Sexual Orientation Not on file Last Filed Vital Signs Vital Sign Reading Time Taken Comments Blood Pressure 138/74 10/22/2024 11:13 AM FIELD MECHANICAL METER TESTER Pulse 70 10/22/2024 11:13 AM FIELD MECHANICAL METER TESTER Temperature 36.6 C (97.9 F) 10/22/2024 11:13 AM FIELD MECHANICAL METER TESTER Respiratory Rate 18 10/22/2024 11:1 3 AM FIELD MECHANICAL METER TESTER Oxygen Saturation 96% 10/22/2024 11: 13 AM FIELD MECHANICAL METER TESTER Inhaled Oxygen Concentration - - Weight 75.7 kg (166 lb 12.8 oz) 025 11:13 AM FIELD MECHANICAL METER TESTER Height 177.8 cm (5' 10 ) 10/22/2024 11: 13 AM FIELD MECHANICAL METER TESTER Body Mass Index 23.93 10/22/2024 11:13 AM FIELD MECHANICAL METER TESTER Plan of Treatment Health Maintenance Due Date Last Done Comments DTAP/TDAP/TD VACCINES (1 - Tdap) 1983 COLORECTAL SCREENING 2009 FIT/FOBT Q 1 year 2009 Flex Sig/CT Colonography Q 5 years 2009 ZOSTER VACCINE (1 of 2) 2014 COVID-19 Vaccine (3 - 2023-2 5 season) 2024 10/08/2021, 09/08/2021 Preventative Visit- Commercial 09/09/2024 Colorectal Cancer Screening 08/03/2027 FIT-DNA Q 3 years 08/03/2027 08/03/2024 RSV VACCINE (60+ or ) (1 - 1-dose 75+ series) 2039 INFLUENZA VACCINE Completed 07/01/2024 HEPATITIS B VACCINES Aged Out No long er eligible based on patient's age to complete this topic Procedures Procedure Name Priority Date/Time Associated Diagnosis Comments COLON CANCER SCREEN, STOOL DNA Routine 08/03/2024 1:00 PM FIELD MECHANICAL METER TESTER Encounter for colorectal cancer screening from Last 3 Months or Most Recently Relevant to Health Maintenance Results * COLON CANCER SCREEN, STOOL DNA (08/03/2024 1:00 PM FIELD MECHANICAL METER TESTER) COLOGUARD RESULT Negative Negative [facility] Comment: NEGATIVE TEST RESULT. A negative Cologuard result indicates a low likelihood that a colorectal cancer (CRC) or advanced adenoma (adenomatous polyps with more advanced pre-malignant features) is present. The chance that a person with a negative Cologuard test has a colorectal cancer is less than 1 in 1500 (negative predictive value >99.9%) or has an advanced adenoma is less than 5.3% (negative predictive value 94.7%). These data are based on a prospective cross-sectional study of 10,000 individuals at average risk for colorectal cancer who were screened with both Cologuard and colonoscopy. (Yogesh Velázquez al, N Engl J Med 2014;370(14):6097-8787) The normal value (reference range) for this assay is negative. COLOGUARD RE-SCREENING RECOMMENDATION: Periodic colorectal cancer screening is an important part of preventive healthcare for asymptomatic individuals at average risk for colorectal cancer. Following a negative Cologuard result, the [place] [employer] and U.S. Multi-Society Task Force screening guidelines recommend a Cologuard re-screening interval of 3 years. References: [place] [employer] Guideline for Colorectal Cancer Screening: https://www.cancer.org/cancer/yakpb-hryepz-wbubia/vkifclnox-ysmskvzbe-dmsofnf/ac s-rec ommendations.html.; Cosmo DK, Addie CR, Alexis BrooksK, Colorectal Cancer Screening: Recommendations for Physicians and Patients from the U.S. Multi-Society Task Force on Colorectal Cancer Screening , Am J Gastroenterology 2017; 112:3973-3245. TEST DESCRIPTION: Composite algorithmic analysis of stool DNA-biomarkers with hemoglobin immunoassay. Quantitative values of individual biomarkers are not reportable and are not associated with individual biomarker result reference ranges. Cologuard is intended for colorectal cancer screening of adults of either sex, 45 years or older, who are at average-risk for colorectal cancer (CRC). Cologuard has been approved for use by the U.S. FDA. The performance of Cologuard was established in a cross sectional study of average-risk adults aged 50-84. Cologuard performance in patients ages 45 to 49 years was estimated by sub-group analysis of near-age groups. Colonoscopies performed for a positive result may find as the most clinically significant lesion: colorectal cancer [4.0%], advanced adenoma (including sessile serrated polyps greater than or equal to 1cm diameter) [20%] or non- advanced adenoma [31%]; or no colorectal neoplasia [45%]. These estimates are derived from a prospective cross-sectional screening study of 10,000 individuals at average risk for colorectal cancer who were screened with both Cologuard and colonoscopy. (Yogesh Gill, N Engl J Med 2014;370(14):3525-4293.) Cologuard may produce a false negative or false positive result (no colorectal cancer or precancerous polyp present at colonoscopy follow up). A negative Cologuard test result does not guarantee the absence of CRC or advanced adenoma (pre-cancer). The current Cologuard screening interval is every 3 years. ([place] [employer] and U.S. Multi-Society Task Force). Cologuard performance data in a 10,000 patient pivotal study using colonoscopy as the reference method can be accessed at the following location: www.Yumm.com/results. Additional description of the Cologuard test process, warnings and precautions can be found at www.cologuard.com. Stool STOOL SPECIMEN / Unknown 08/03/2024 1:00 PM FIELD MECHANICAL METER TESTER 08/04/2024 9:31 PM FIELD MECHANICAL METER TESTER December [employer] STOOLS Final Res [employer] CLIA # [id number] [address] [facility], [address] [place] [address] from Last 3 Months or Most Recently Relevant to Health Maintenance Insurance [email or web address] EXCHANGE [id number] [address]AL[address] [id number] Care Teams Corporate Aircraft Mechanic Relationship Specialty Start Date End Date Patty Fernandez DO [address] [place] [address] PCP - General Family Practice 06/01/24
--- NOTE | 2025-03-06 20:28 | XRR_ITS ---
PROCEDURE INFORMATION: Exam: XR Chest Exam date and time: 03/06/2025 8:44 PM Age: 59 years old Clinical indication: Chest pressure; C/O chest pain; Additional info: Cp TECHNIQUE: Imaging protocol: Radiologic exam of the chest. Views: 1 view. COMPARISON: CR XR chest 1V portable [id number] 09/15/2023 1:32 AM FINDINGS: Lungs: Lungs are hyperinflated. Clear parenchyma. Pleural spaces: No pleural effusion. No pneumothorax. Heart/Mediastinum: Cardiac silhouette is normal in size for technique. Bones/joints: Age appropriate. XR/XR chest 1V portable [id number] IMPRESSION: Hyperinflated but clear lungs. No other acute cardiopulmonary abnormality.
[2025-03-06 20:57] LABS: Basophils # 0.1 10^3/uL (0.0-0.1); Basophils % 0.7 %; Eosinophils # 0.2 10^3/uL (0.0-0.8); Eosinophils % 3.3 %; Hematocrit 34.2 % (37-53); Lymphocytes # 1.8 10^3/uL (0.8-4.8); Lymphocytes % 25.6 %; Mean Corpuscular HGB Conc 35.4 g/dL (30-55); Mean Corpuscular Hemoglobin 28.6 pg (27-33); Mean Corpuscular Volume 80.9 fl (82-101); Mean Platelet Volume 9.9 fL (7.4-10.4); Monocytes # 0.7 10^3/uL (0.2-0.9); Monocytes % 9.6 %; Neutrophils # 4.21 10^3/uL (1.8-7.7); Neutrophils % 60.4 %; Nucleated Red Blood Cells % 0 %; Platelet Count 272 10^3/cmm (157-399); Red Blood Count 4.23 10^6/uL (3.85-5.65); Red Cell Distribution Width 12.3 % (12.1-15.1); White Blood Count 6.98 10^3/uL (3.29-11.43)
--- NOTE | 2025-03-06 21:13 | W.ED.CHESTPA ---
HPI - Chest Pain General: Chief Complaint: Chest Pain Stated Complaint: CP front & under right arm bad when coughing Time Seen by Provider: 03/06/25 20:24 History of Present Illness: 59-year-old male patient complaining of right-sided pleuritic chest pain starting around 6 PM. He has been coughing quite a bit he says. No fever. No sputum production. Mild shortness of breath. No abdominal pain. No nausea or vomiting. Related Data Home Medications ?Medication ?Instructions ?Recorded ?Confirmed amoxicillin 875 mg-potassium 1 tab PO BID 06/06/23 06/06/23 clavulanate 125 mg tablet lisinopril 2.5 mg tablet 2.5 mg PO DAILY 06/06/23 06/06/23 multivitamin 1 tab PO DAILY 06/06/23 06/06/23 Previous Rx's ?Medication ?Instructions ?Recorded albuterol sulfate 90 mcg/actuation 2 inh inhalation Q4H PRN shortness 08/12/22 aerosol inhaler of breath or wheezing #6.7 grams ketorolac 10 mg tablet 10 mg PO TID PRN pain #10 tabs 03/06/25 Allergies Allergy/AdvReac Type Severity Reaction Status Date / Time No Known Drug Allergies Allergy Unknown Verified 06/06/23 15:54 [facility] ED PFSH: Medical History No pertinent family history Surgical History No pertinent past surgical history Physical Exam Const: COMMON NORMALS: no acute distress GENERAL APPEARANCE: cooperative; not ill appearing and not frail appearing HENMT: COMMON NORMALS: normocephalic, atraumatic and Normal external nose present HEAD & SCALP: normocephalic and atraumatic FACE & SINUS: normal facial exam and face symmetric NOSE: Normal external nose present Eye: COMMON NORMALS: Equal, round and reactive pupils present and EOMs intact bilaterally PUPIL: Yes Equal, round and reactive pupils present Neck/C-Spine: GENERAL: Yes trachea midline Chest: CHEST: Yes Symmetrical chest wall rise OTHER: Reproducible tenderness along ribs 6 7 and 8 anteriorly and laterally on the right. Resp: COMMON NORMALS: normal respiratory effort, No retractions, No use of accessory muscles and clear to auscultation bilaterally AUSCULTATION: clear to auscultation bilaterally Cardio: COMMON NORMALS: regular rate and regular rhythm RATE: regular rate RHYTHM: regular rhythm GI: COMMON NORMALS: Normal to inspection, nondistended, normoactive bowel sounds present Extremity: COMMON NORMALS: no pedal edema Neuro: JAMEL COMA SCALE: document GCS findings [place] coma scale eye opening: Spontaneous [place] coma scale verbal response: Orientated [place] coma scale motor response: Obey commands [place] coma scale total score: 15 SENSORY EXAM: Yes extremities (intact) Psych: COMMON NORMALS: speech normal SPEECH: Yes normal speech Skin: COMMON NORMALS: no rashes or lesions noted GENERAL SKIN EXAM: no rashes or lesions noted Course Vital Signs: Vital signs: Vital Signs Temperature 98.0 F 03/06/25 20:12 Pulse Rate 55 L 03/06/25 23:35 Respiratory Rate 20 H 03/06/25 23:35 Blood Pressure 157/81 03/06/25 23:35 Pulse Oximetry 95 03/06/25 23:35 Oxygen Delivery Me thod Room Air 03/06/25 20:12 MDM - Chest Pain Medical Decision Making Vitals are stable. He is nonhypoxic and nontachycardic. Pain is reproducible. CBC is normal. BMP is normal. Chest x-ray shows hyperinflated but clear lungs. Troponin is normal. BNP is normal. Pain is improved. Will be discharged. He did not want to wait on his second troponin. Lab Data 03/06/25 20:47 03/06/25 20:47 Radiology Impressions Chest X-Ray 03/06/25 20:28 IMPRESSION: Hyperinflated but clear lungs. No other acute cardiopulmonary abnormality. Laboratory Results WBC 6.98 10^3/uL (3.29-11.43) 03/06/25 20:47 RBC 4.23 10^6/uL (3.85-5.65) 03/06/25 20:47 Hgb 12.10 g/dL (11.27-16.99) 03/06/25 20:47 Hct 34.2 % (37-53) L 03/06/25 20:47 MCV 80.9 fl (82-101) L 03/06/25 20:47 MCH 28.6 pg (27-33) 03/06/25 20:47 MCHC 35.4 g/dL (30-55) 03/06/25 20:47 RDW 12.3 % (12.1-15.1) 03/06/25 20:47 Plt Count 272 10^3/cmm (157-399) 03/06/25 20:47 MPV 9.9 fL (7.4-10.4) 03/06/25 20:47 Neut % (Auto) 60.4 % 03/06/25 20:47 Lymph % (Auto) 25.6 % 03/06/25 20:47 [place] % (Auto) 9.6 % 03/06/25 20:47 Eos % (Auto) 3.3 % 03/06/25 20:47 Baso % (Auto) 0.7 % 03/06/25 20:47 Neut # (Auto) 4.21 10^3/uL (1.8-7.7) 03/06/25 20:47 Lymph # (Auto) 1.8 10^3/uL (0.8-4.8) 03/06/25 20:47 [place] # (Auto) 0.7 10^3/uL (0.2-0.9) 03/06/25 20:47 Eos # (Auto) 0.2 10^3/uL (0.0-0.8) 03/06/25 20:47 Baso # (Auto) 0.1 10^3/uL (0.0-0.1) 03/06/25 20:47 Nucleated RBC % (auto) 0 % 03/06/25 20:47 Nucleated RBCs # 0.0 /100WBC 03/06/25 20:47 Sodium 140 mmol/L (136-145) 03/06/25 20:47 Potassium 3.5 mmol/L (3.5-5.1) 03/06/25 20:47 Chloride 104 mmol/L (98-107) 03/06/25 20:47 Carbon Dioxide 22 mmol/L (22-29) 03/06/25 20:47 Anion Gap 17.5 (5-19) 03/06/25 20:47 BUN 10 mg/dL (8-23) 03/06/25 20:47 Creatinine 0.7 mg/dL (0.7-1.2) 03/06/25 20:47 GFR Calculation 115.0 mL/min (90-130) 03/06/25 20:47 Glucose 120 mg/dL (65-115) H 03/06/25 20:47 Calculated Osmolality 290 mOsm/kg (285-295) 03/06/25 20:47 Calcium 9.3 mg/dL (8.5-10.5) 03/06/25 20:47 Total Bilirubin 0.4 mg/dL (0.15-1.2) 03/06/25 20:47 AST 16 U/L (0-40) 03/06/25 20:47 ALT 10 U/L (0-41) 03/06/25 20:47 Alkaline Phosphatase 114 U/L (40-130) 03/06/25 20:47 Troponin T Baseline 7 ng/L (0-15) 03/06/25 20:47 NT-Pro-B Natriuret Pep 66 pg/mL (0-125) 03/06/25 20:47 Total Protein 7.0 g/dL (6.6-8.7) 03/06/25 20:47 Albumin 4.1 g/dL (3.5-5.2) 03/06/25 20:47 Globulin 2.9 g/dL (1.3-4.6) 03/06/25 20:47 All radiology interpretation(s) finalized by discharge Discharge Plan Discharge Patient Disposition: Home Clinical Impression: Atypical chest pain, Costalchondritis Condition: Stable Prescriptions: Continued ketorolac 10 mg tablet 10 mg PO TID PRN (Reason: pain) Qty: 10 0RF No Action albuterol sulfate 90 mcg/actuation HFA aerosol inhaler 2 inh inhalation Q4H PRN (Reason: shortness of breath or wheezing) Qty: 6.7 1RF lisinopril 2.5 mg tablet 2.5 mg PO DAILY amoxicillin-pot clavulanate 875-125 mg tablet 1 tab PO BID Men's Multi-Vitamin Tablet 1 tab PO DAILY Discharge Orders: Discharge ED (Routine); Ordered 03/06/25 Ordered By: Arie Tracey Patient Instructions: Costochondritis (ED), Opioid Safety, Pain Management, Patient Portal & Caitlin Instructions Activity Restrictions/Additional Instructions: Return for pain, shortness of breath, fever, sputum production, other concerning symptoms. Call your doctor Saturday for a follow-up appointment. Print Language: Romansh Coding Level of Care Code ED Supervisor Mill for Chg Fwd
[2025-03-06 21:18] VITALS: BP 135/73; PULSE 57; RESP 23; O2SAT 97
[2025-03-06 21:22] LABS: Troponin(5th) Baseline 7 ng/L (0-15)
[2025-03-06 21:29] LABS: Alanine Aminotransferase 10 U/L (0-41); Albumin Level 4.1 g/dL (3.5-5.2); Alkaline Phosphatase 114 U/L (40-130); Anion Gap 17.5 (5-19); Aspartate Amino Transferase 16 U/L (0-40); Blood Urea Nitrogen 10 mg/dL (8-23); Calcium 9.3 mg/dL (8.5-10.5); Carbon Dioxide 22 mmol/L (22-29); Chloride 104 mmol/L (98-107); Globulin 2.9 g/dL (1.3-4.6); Glucose 120 mg/dL (65-115); NT Pro B Type Natriuretic Pept 66 pg/mL (0-125); Osmolality Calculated 290 mOsm/kg (285-295); Potassium 3.5 mmol/L (3.5-5.1); Sodium 140 mmol/L (136-145); Total Bilirubin 0.4 mg/dL (0.15-1.2)
[2025-03-06 21:51] VITALS: RESP 22; O2SAT 96
[2025-03-06] MEDS: morphine 4 mg/mL SDV 1 mL IVP (21:51)
[2025-03-06] MEDS: ondansetron 2 mg/ML SDV 2 mL 4 MG IVP (21:52)
[2025-03-06] MEDS: ketorolac 30 mg/mL INJ IVP (21:52)
[2025-03-06 23:35] VITALS: BP 157/81; PULSE 55; RESP 20; O2SAT 95
== END 2025-03-06 23:30 | disposition home or self-care (01) ==
PROVIDERS: Emergency Provider Emergency Medicine
DX: R07.89 Other chest pain (principal); M94.0 Chondrocostal junction syndrome [Tietze]
CPT/HCPCS: 71045; 80053; 83880; 84484; 85025; 93005; 96374; 96375; 99285; J1885; J2270; J2405